=== PATIENT | male | born 1955 | race Caucasian/White ===

== ENCOUNTER 2021-11-05 16:47 | Emergency (ER) | payer MEDICARE, BC, SELFPAY ==
[2021-11-05 17:42] VITALS: BP 122/76; PULSE 82; RESP 18; TEMP 36.8; O2SAT 97; BMI 34.2
--- NOTE | 2021-11-05 18:02 | ED_ITS ---
HPI - General Adult General Time Seen by Provider: 18:02 Date Seen: 11/05/21 Chief complaint: Animal Bite Stated complaint: Cat Bite Time Seen by Provider: 11/05/21 17:55 Source: patient History of Present Illness HPI narrative: Margret is a 66 year old male with past medical history of autoimmune hepatitis, kidney stones presents emergency department with a cat bite. Patient states that around 9:00 p.m. last night her orange CT bit her on her left lower extremity, there are 2 puncture [place], no pain and minimal bleeding. She had been ambulating without any difficulty. Patient states that today she has had some pain to that area and noticed some redness and warmth surrounding the bite wounds. There has not been any drainage or swelling. She denies any fevers, chills myalgias arthralgias. The cat is an indoor cat. The cat is playful and acting normally. Patient was concerned about possible infection was starting. No other concerns at this time. Related Data Previous Rx's Medication Instructions Recorded cefuroxime axetil 500 mg tablet 500 mg PO BID 7 Days #14 tab 11/05/21 Allergies Allergy/AdvReac Type Severity Reaction Status Date / Time Penicillins Allergy Verified 11/05/21 17:41 Review of Systems Status of ROS: Reports: 10 or more systems reviewed and unremarkable except as noted in History and below PFSH PFS Social History Smoking Status: Current every day smoker What tobacco products do you use: cigarettes Do you use any of these nicotine containing products: None Second hand tobacco smoke exposure: No How often do you have a drink containing alcohol: never AUDIT-C Alcohol total score: 0 Non-prescribed substance use: denies use Exam Const: Vital Signs, click to edit/add: Vital Signs - 24 hr 11/05/21 17:42 Temperature 98.2 F Pulse Rate [Pulse Oximeter] 82 Respiratory Rate 18 Blood Pressure [Ri ght Upper Arm] 122/76 Pulse Oximetry 97 Common normals: no apparent distress and oriented x3 HENMT: Common normals: normocephalic Head and scalp: normocephalic Eye: Common normals: PERRL, EOMs intact bilaterally and conjunctivae normal Conjunctiva: conjunctiva(e) normal Pupil: PERRL Neck & C-Spine: Common normals: full ROM and supple Resp: Common normals: normal respiratory effort and clear to auscultation bilaterally Auscultation: clear to auscultation bilaterally Cardio: Common normals: S1 normal heart sound and S2 normal heart sound Heart sounds: S1 normal and S2 normal GI: Common normals: Normal to inspection, nondistended, normoactive bowel sounds present : Common normals: no CVA tenderness Bladder/kidney exam: no CVA tenderness Back & Pelvis: Common normals: no CVA tenderness Extremity: Common normals: full ROM Other: Left lower extremity: Just above the lateral malleolus, 2 puncture wounds, healing, mild surrounding erythema and warmth, no induration, tenderness or fluctuance noted. Neuro: Common normals: oriented x3 Course Course Hospital Course: 6:00 PM: AIDET performed. vitals are normal. Workup will include no labs or imaging based on history and physical exam, patient is up-to-date on his tetanus, plan to discharge with prescription for cefuroxime axetil, beta lactam, based on her allergy to Augmentin, patient has been on Ceftin in the past. 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 This should provide coverage. Patient should follow up with primary care provider after that time as needed, return if worsening symptoms. Vital Signs Vital signs: Initial Vital Signs Temperature 98.2 F 11/05/21 17:42 Temperature Source Temporal Artery Scan 11/05/21 17:42 Pulse Rate 82 11/05/21 17:42 Pulse Rhythm 11/05/21 17:42 Respiratory Rate 18 11/05/21 17:42 Blood Pressure 122/76 11/05/21 17:42 Blood Pressure Mean 91 11/05/21 17:42 Blood Pressure Position Sitting 11/05/21 17:42 Pulse Oximetry 97 11/05/21 17:42 Oxygen Delivery Method 11/05/21 17:42 Vital Signs Temperature 98.2 F 11/05/21 17:42 Pulse Rate 82 11/05/21 17:42 Respiratory Rate 18 11/05/21 17:42 Blood Pressure 122/76 11/05/21 17:42 Pulse Oximetry 97 11/05/21 17:42 Temperature 98.2 F 11/05/21 17:42 Pulse Rate 82 11/05/21 17:42 Respiratory Rate 18 11/05/21 17:42 Blood Pressure 122/76 11/05/21 17:42 Pulse Oximetry 97 11/05/21 17:42 Discharge Plan Discharge Clinical Impression: Cat bite of left lower leg Patient Disposition: Home, Self-Care Instructions: Animal Bite (ED) Additional Instructions: To take the Cefuroxime axetil 500 mg twice daily for 7 days. To continue with bacitracin ointment to the area, to clean with soap and water, ice and elevation, any worsening redness or streaking to be seen again. Follow up with a primary care provider over the next 7-10 days as needed or return if worsening symptoms. Activity Level: Activity as Tolerated Prescriptions: New cefuroxime axetil 500 mg tablet 500 mg PO BID 7 Days Qty: 14 0RF Follow Up/Referrals: Digna Quarles MD [Primary Care Provider] - Stand Alone Forms: [facility] Info Instructions
== END 2021-11-05 19:05 | disposition home or self-care (01) ==
PROVIDERS: Emergency Provider Student in an Organized Health Care Education/Training Program; PCP Family Medicine
DX: S81.852A Open bite, left lower leg, initial encounter (principal); W55.01XA Bitten by cat, initial encounter
CPT/HCPCS: 99282; 99283; 99284

== ENCOUNTER 2021-11-26 08:24 | Outpatient (RCR) | payer MEDICARE, BC, SELFPAY ==
[2021-11-17 10:22] LABS: Basophils Percent Auto 0.4 % (0.0-3.0); Eosinophils Percent Auto 2.2 % (0.0-7.0); Hemoglobin* 14.3 gm/dL (13.5-17.5); Immature Granulocytes Abs Auto 0.07 K/uL (0.00-0.30); Lymphocytes Percent Auto 60.5 % (20-44); Mean Corpuscular HGB Conc 33 gm/dL (32-36); Mean Corpuscular Hemoglobin 31 pg (26-34); Mean Corpuscular Volume 93 fL (80-100); Monocytes Percent Auto 4.2 % (0.0-11.0); Neutrophils Percent Auto 32.4 % (42.0-72.0); Platelet Count* 242 K/uL (140-440); RDW Coefficient of Variation % 14.1 % (11.5-15.5); Red Blood Count 4.65 m/uL (4.30-5.90)
[2021-11-17 10:36] LABS: Albumin* 4.2 g/dL (3.3-5.0); Chloride* 108 mmol/L (96-114); Sodium* 137 mmol/L (135-149)
[2021-11-17 10:37] LABS: Potassium* 4.6 mmol/L (3.6-5.1)
[2021-11-17 10:39] LABS: Alanine Aminotransferase* 10 U/L (4-50); Alkaline Phosphatase* 114 U/L (40-150); Aspartate Amino Transferase* 24 U/L (12-35); Bilirubin Total* 0.5 mg/dL (0.1-1.5); Blood Urea Nitrogen* 14 mg/dL (7-30); Carbon Dioxide* 21 mmol/L (20-32); Creatinine* 0.9 mg/dL (0.5-1.5); Estimated Glomerular Filt Rate 93 ml/min; Glucose* 103 mg/dL (60-115); Lactate Dehydrogenase* 331 U/L (313-618); Total Protein* 8.1 g/dL (6.0-8.3)
[2021-11-17 10:40] LABS: Calcium* 10.3 mg/dL (8.4-10.6)
[2021-11-17 11:02] LABS: Slide Review Reflex Yes; White Blood Count* 26.37 K/uL (4.50-11.00)
[2021-11-17 11:03] LABS: Slide Review Acceptable Review (Acceptable)
[2021-11-19 09:26] LABS: Albumin 3.84 g/dL (3.75-5.01); Alpha 1 Globulin 0.32 g/dL (0.19-0.46); Alpha 2 Globulin 0.78 g/dL (0.48-1.05); Immunofixation IFE Done; Immunoglobulin A 38 mg/dL (68-408); Immunoglobulin G 1732 mg/dL (768-1632); Immunoglobulin M 57 mg/dL (35-263); Kappa/Lambda Light Chain Ratio 3.32 (0.26-1.65); Lambda Qnt Free Light Chains 11.36 mg/L (5.71-26.30); Total Protein, Serum 7.4 g/dL (6.3-8.2)
== END 2022-05-16 23:59 | disposition home or self-care (01) ==
LOC: CCIC 08:24
PROVIDERS: PCP Family Medicine; Referring Provider Family Medicine; Visit Provider Internal Medicine Hematology & Oncology
DX: C91.10 Chronic lymphocytic leukemia of B-cell type not having achieved remission (principal); D72.820 Lymphocytosis (symptomatic); D47.2 Monoclonal gammopathy
CPT/HCPCS: 36415; 80053; 82784; 83520; 83615; 84155; 84165; 85025; 86334; 99212; 99213; 99214

== ENCOUNTER 2022-02-07 14:44 | Emergency (ER) | payer MEDICARE, BC, SELFPAY ==
[2022-02-07 15:04] VITALS: BP 149/82; PULSE 88; RESP 18; TEMP 36.8; O2SAT 95; BMI 34.2
[2022-02-07 15:17] LABS: Appearance Urine Clear (Clear); Bilirubin Urine Negative (Negative); Blood Urine 1+ (Negative); Color Urine Yellow (Yellow); Glucose Urine Negative (Negative); Ketones Urine Negative (Negative); Leukocyte Esterase Urine 1+ (Negative); Nitrite Urine Negative (Negative); Protein Urine Negative (Negative); Urobilinogen Urine 0.2 (0.2-1.0)
--- NOTE | 2022-02-07 15:22 | ED_ITS ---
HPI - Female Genitourinary General Chief complaint: Urogenital Problems, Female Stated complaint: Possible bladder infection Time Seen by Provider: 02/07/22 14:55 History of Present Illness HPI Narrative: This 66-year-old female comes in reporting lower abdominal pain that began yesterday. She states that the pain comes and goes somewhat. She does have a history of diverticulitis about 3 years ago but states that this pain seems different. She also has a remote history of kidney stones but again her symptoms are not similar to those episodes. She does report lower abdominal pain with increased urinary frequency. She has not had any fevers. She does not report any flank pain. Related Data Home Medications Medication Instructions Recorded Confirmed levothyroxine 88 mcg capsule 88 mcg PO QDAY 11/26/21 11/26/21 Previous Rx's Medication Instructions Recorded ciprofloxacin HCl 500 mg tablet 500 mg PO BID #20 tabs 02/07/22 (Cipro) metronidazole 500 mg tablet 500 mg PO BID 10 days #20 tabs 02/07/22 Allergies Allergy/AdvReac Type Severity Reaction Status Date / Time Penicillins Allergy Verified 11/05/21 17:41 Review of Systems Status of ROS: Reports: 10 or more systems reviewed and unremarkable except as noted in History and below Narrative: Constitutional: No fevers, no weight gain or loss. Eyes: No discharge. No vision changes. HENT: No congestion, no sore throat, no ear pain. Cardiovascular: No chest pain, no palpitations. Respiratory: No shortness of breath, no wheezes, no cough. Gastrointestinal: No abdominal pain, no vomiting, no diarrhea. Genitourinary: No hematuria. Increased urinary frequency and lower abdominal pain. Musculoskeletal: Normal range of motion. Skin: No rashes, no pruritis. Neurological: No dizziness, weakness, sensory change, speech change. Endo/Heme/Allergies: No bruising or bleeding. No polydipsia. Pysch: no suicidality, no anxiety, no insomnia. All other systems reviewed and are negative. 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 HEENT: Normocephalic, atraumatic. Neck: Normal range of motion. Nontender. Supple. Heart: Regular. No murmurs. Normal rate. Intact distal pulses. Lungs: Clear to auscultation. No chest discomfort. No wheezes, rhonchi, or rales. Abdomen: Normal bowel sounds. Diffuse tenderness in the lower abdomen. No rebound tenderness. Genitalia: Deferred. Back: No midline tenderness. Normal range of motion. Extremities: Normal range of motion. No injury. Skin: Intact. No rash. Warm. No erythema or pallor. Neurologic: No altered sensation. No weakness. Alert and oriented. Psychiatric: No suicidality. No anxiety or depression. No insomnia. Nursing notes and vitals signs are reviewed. Const: Vital Signs, click to edit/add: Vital Signs - 24 hr 02/07/22 15:04 Temperature 98.3 F Pulse Rate [Right Pulse Oximeter] 88 Respiratory Rate 18 Blood Pressure [Ri ght Upper Arm] 149/82 H Pulse Oximetry 95 Oxygen Delivery Me thod Room Air Course Vital Signs Vital signs: Initial Vital Signs Temperature 98.3 F 02/07/22 15:04 Temperature Source Temporal Artery Scan 02/07/22 15:04 Pulse Rate 88 02/07/22 15:04 Respiratory Rate 18 02/07/22 15:04 Blood Pressure 149/82 H 02/07/22 15:04 Blood Pressure Mean 104 02/07/22 15:04 Blood Pressure Position Sitting 02/07/22 15:04 Pulse Oximetry 95 02/07/22 15:04 Oxygen Delivery Method 02/07/22 15:04 Vital Signs Temperature 98.3 F 02/07/22 15:04 Pulse Rate 88 02/07/22 15:04 Respiratory Rate 18 02/07/22 15:04 Blood Pressure 149/82 H 02/07/22 15:04 Pulse Oximetry 95 02/07/22 15:04 Oxygen Delivery Method 02/07/22 15:04 Temperature 98.3 F 02/07/22 15:04 Pulse Rate 88 02/07/22 15:04 Respiratory Rate 18 02/07/22 15:04 Blood Pressure 149/82 H 02/07/22 15:04 Pulse Oximetry 95 02/07/22 15:04 Oxygen Delivery Method 02/07/22 15:04 MDM - Female Genitourinary MDM Narrative Medical decision making narrative: This patient comes in with lower abdominal pain left greater than right and has some dysuria symptoms. Urinalysis however returns with no certain findings of infection. She does have a history of diverticulitis and kidney stone. A CT of the abdomen and pelvis without contrast was completed and does show evidence of diverticulitis. The patient received prescriptions for Cipro and Flagyl. There are no other complications with this acute diverticulitis presentation. I did describe signs and symptoms that would indicate a need for return and re- evaluation. Lab Data Labs: Lab Results 02/07/22 Range/Units 15:10 Urine Color Yellow (Yellow) Urine Appearance Clear (Clear) Urine pH 7.0 (5.0-8.5) Ur Specific Hitchcock 1.010 (1.000-1.030) Urine Protein Negative (Negative) Urine Glucose (UA) Negative (Negative) Urine Ketones Negative (Negative) Urine Blood 1+ A (Negative) Urine Nitrite Negative (Negative) Urine Bilirubin Negative (Negative) Urine Urobilinogen 0.2 (0.2-1.0) Ur Leukocyte Esterase 1+ A (Negative) Urine RBC 0-2 (0-2) Urine WBC 5-10 A (0-5) Ur Squamous Epith Cells Few (None-Few) Urine Bacteria None (None) Imaging Data CT scan - abdomen: Radiologist's impression: 1. Acute diverticulitis at the junction of the descending and sigmoid colon. No drainable fluid collection. No free air. 2. Multiple large, predominantly retroperitoneal lymph nodes, increased in size from prior PET-CT performed in December 2020. 3. Hyperdense lesion within the inferior pole of the right kidney, minimally increased from prior PET-CT, is incompletely characterized on this exam, however could represent a hemorrhagic or proteinaceous cyst. 4. Bilateral nonobstructing renal calculi. Discharge Plan Discharge Clinical Impression: Diverticulitis, MGUS (monoclonal gammopathy of unknown significance) Patient Disposition: Home, Self-Care Condition: Stable Additional Instructions: Take medication as needed and indicated. Follow up with MD or return if worsening. Prescriptions: New ciprofloxacin HCl [Cipro] 500 mg tablet 500 mg PO BID Qty: 20 0RF metronidazole 500 mg tablet 500 mg PO BID 10 Days Qty: 20 0RF No Action levothyroxine 88 mcg capsule 88 mcg PO QDAY Follow Up/Referrals: Digna Quarles MD [Primary Care Provider] - Stand Alone Forms: [employer] Info Instructions
[2022-02-07 15:27] LABS: RBC Urine 0-2 (0-2); Squamous Epithelial Cell Urine Few (None-Few)
--- NOTE | 2022-02-07 15:41 | CRLHL7_ITS ---
For Patients: As a result of the 21st Century Cures Act, medical imaging exams and procedure reports are released immediately into your electronic medical record. You may view this report before your referring provider. If you have questions, please contact your health care provider. INDICATION: Left lower quadrant pain, patient has history lymphocytic leukemia TECHNIQUE: CT abdomen and pelvis without contrast. COMPARISON: CT abdomen and pelvis 03/08/2017 and PET-CT 01/16/2021 FINDINGS: The visualized portions of the lung bases are clear. There is a rounded, probable low-lying axillary lymph node on the left which measures 1.1 x 0.6 cm, previously 0.7 x 0.6 cm. Evaluation of the abdominal viscera is limited due to lack of IV contrast, however the liver, spleen, pancreas and right adrenal gland are unremarkable. Stable left adrenal nodule. The gallbladder is nondistended. There are multiple enlarged retroperitoneal lymph nodes, for example a left periaortic lymph node measures 2.0 by 1.5 cm this previously measured 1.1 x 0.5 cm. There is a prominence right external iliac lymph node which measures 1.2 x 2.6 cm (series 2, image 115). previously 0.7 x 2.0 cm Multiple bilateral nonobstructing renal calculi. There is a 0.8 cm hyperdense lesion within the inferior pole of the right kidney, which is minimally increased from the prior PET-CT could represent a hemorrhagic cyst. Negative for hydronephrosis bilaterally. There are scattered colonic diverticuli. There is a diverticuli at the junction of the descending and sigmoid colon with adjacent fat stranding and edema, consistent with acute diverticulitis. No free air. No drainable fluid collection. There are no dilated loops of small bowel to suggest obstruction.The appendix is normal.There is no intraperitoneal free air or fluid. The visualized osseous structures are unremarkable. IMPRESSION: 1. Acute diverticulitis at the junction of the descending and sigmoid colon. No drainable fluid collection. No free air. 2. Multiple large, predominantly retroperitoneal lymph nodes, increased in size from prior PET-CT performed in December 2020. 3. Hyperdense lesion within the inferior pole of the right kidney, minimally increased from prior PET-CT, is incompletely characterized on this exam, however could represent a hemorrhagic or proteinaceous cyst. 4. Bilateral nonobstructing renal calculi. Dictated by Yecenia Redman MD @ 02/07/2022 4:43:21 PM Please note that all CT scans at this facility use dose modulation, iterative reconstruction, and/or weight-based dosing when appropriate to reduce radiation dose to as low as reasonably achievable. Dictated by: Yecenia Redman MD @ 02/07/2022 16:43:51 (Electronically Signed)
--- OUTSIDE RECORDS SUMMARY | 2022-02-07 16:09 | XMS_ITS | Clinical Summary ---
:1955 Author Organization [facility] [place] [address] Care Team Providers Name Role Phone Digna Quarles MD Primary Care Provider Richard Lane MD Unavailable Nela Small [facility] Unavailable Allergies Active Allergy Reactions Severity Noted Date Comments Adhesive Rash 11/01/2014 Doxycycline Nausea Only 07/03/2016 Niacin Rash, Palpitations, 11/01/2013 Flushing Penicillins Hives High Pt states she h ad hives many years ago Medications Medication Sig Dispensed Refills Start End Date Status Date acetaminophen Take 1 tablet by 0 Active (TYLENOL EXTRA mouth every 6 7 STRENGTH) 500 mg hours if needed. tablet Max acetaminophen dose: 4000mg in 24 hrs. arm brace As directed 1 1 Each 0 Active miscIndications: Each. Elbow strap 2 Left elbow pain for left lateral epicondylitis levothyroxine TAKE 1 TABLET BY 90 Tablet 2 Active (SYNTHROID) 88 MOUTH BEFORE 2 mcg BREAKFAST. tabletIndications : Hypothyroidism, unspecified type nystatin APPLY TOPICALLY 0 Acti ve (MYCOSTATIN) TO THE AFFECTED 2 cream AREA TWICE DAILY FOR 2 WEEKS azithromycin Take 500 mg today 6 Tablet 0 Active (Zithromax Z-Yann) and then 250 mg 2 250 mg days 2-5 tabletIndications : Acute maxillary sinusitis, recurrence not specified azithromycin Take 500 mg (2 6 Tablet 0 01/21/20 Di scontinued (Zithromax Z-Yann) tabs) by mouth on 06 10 (*Med 250 mg day 1, then 250 comp lete/Regimen tabletIndications mg (1 tab) daily complete/Level : Acute for days 2-5. of car e change) non-recurrent sinusitis, unspecified location Active Problems Problem Noted Date CLL (chronic lymphocytic leukemia) 01/20/2022 Lymphoproliferative disorder 07/30/2021 Acute eczematoid otitis externa of left ear 02/10/2018 Sepsis 04/10/2017 Fungal pneumonia 12/08/2016 Postprocedural pneumothorax 09/23/2016 MGUS (monoclonal gammopathy of unknown significance) 0 06/04/2016 Incomplete bladder emptying 11/20/2015 Recurrent UTI 11/20/2015 Acute pyelonephritis 10/13/2014 Presbyopia OU 05/02/2013 Bacteremia 11/18/2012 ACP (advance care planning) 08/14/2012 Atrophic kidney 08/29/2011 Overview: Right kidney smaller than left on ultras ound 2007. Nephrolithiasis 08/29/2011 Overview: Right sided kidney stone in proximal ure ter 08/28/11 with hydronephrosis. Tobacco abuse 03/25/2010 Overview: Around 1/2 ppd. Autoimmune hepatitis 04/26/2009 Overview: On imuran Unspecified hypothyroidism Overview: On synthroid Other and unspecified hyperlipidemia Lung infiltrate on CT Lung nodule Ureteral calculus Resolved Problems Problem Noted Date Resolved Date MGUS (monoclonal gammopathy of unknown significance) 017 06/04/2016 Incomplete emptying of bladder 09/11/2015 7 [place]ERETTE (acute kidney injury) 10/14/2014 07/18/2015 Flank pain 10/13/2014 12/08/2016 Kidney stone 10/13/2014 02/10/2018 Sepsis(995.91) 11/18/2012 05/05/2013 Sepsis due to urinary tract infection 08/14/2012 UTI (urinary tract infection) 08/31/2011 05/05/2013 Nausea with vomiting 08/30/2011 05/05/2013 Back pain 08/30/2011 02/10/2018 Other chronic hepatitis 09/15/2007 03/25/2010 Nonspecific elevation of levels of transaminase or lactic 08/29/2011 acid dehydrogenase (LDH) Excessive or frequent menstruation 01/16 Overview: s/p hysterectomy Encounters Date Type Specialty Care Team Description 01/20/2022 Office Visit Digna Quarles (Cough, itchy throat, MD Jamila post nasal drip , phlegm and neck swelling f or 1 week) 01/20/2022 Travel from Last 3 Months Immunizations Name Administration Dates Next Due AMB Influenza, IIV4 PF (=>6 mos 01/14/2018, 03/25/2016 Flulaval,Fluzone Fluarix)(Flu Clinic Only) COVID-19 vaccine (Moderna 100mcg/0.5mL) 07/29/2020, 07/02/19 21 PF, MDV DTaP 01/16/2011 Influenza A (H1N1), Inactivated (Age 6-35 03/06/2009 Mos) Influenza, High-dose Quadrivalent 01/23/2022, 01/08/2021, Inactivated Influenza, IIV3 (Age >=3 years) 01/31/2015, 02/14/2013, 01/19 Influenza, IIV4 02/10/2017, 01/17/2014 Influenza, Inactivated IIV3 (Age 65+ 01/10/2019 Years) Preserv Free Pneumococcal Poly,23-Valent (Pneumovax) 12/16/2017 Pneumococcal conj 13-Valent (Prevnar 13) 12/10/2016 Td (Age >=7 Years) 06/18/1997 Zoster (Shingrix-RZV, recombinant) 03/13/2020, 01/03/2020 Family History Medical History Relation Name Comments Diabetes Mother Stroke Mother Relation Name Status Comments Mother Social History Tobacco Use Types Packs/Day Years Used Date Current Every Day Smoker Cigarettes 0.5 30 Smokeless Tobacco: Never Used Tobacco Cessation: Ready to Quit: Yes; C ounseling Given: Yes Alcohol Use Standard Drinks/Week Comments No 0 (1 standard drink = 0.6 oz pure alcoho l) Sex Assigned at Date Recorded Not on file COVID-19 Exposure Response Date Recorded In the last 10 days, have you been in contact with No / Unsu re 01/20/2022 1:19 PM CDT someone who was confirmed or suspected to have Coronavirus/COVID-19? Obstetrics History Last Filed Vital Signs Vital Sign Reading Time Taken Comments Blood Pressure 120/77 01/20/2022 1:34 PM CDT Pulse 89 01/20/2022 1:34 PM CDT Temperature 36.8 ??C (98.3 ??F) 01/20/2022 1:34 PM CDT Respiratory Rate 20 12/27/2018 9:22 AM CDT Oxygen Saturation 97% 01/20/2022 1:34 PM CDT Inhaled Oxygen Concentration - - Weight 102.1 kg (225 lb) 01/20/2022 1:34 PM CDT Height 170.2 cm (5' 7) 07/16/2021 10:28 AM CDT Body Mass Index 35.24 07/16/2021 10:28 AM CDT Plan of Treatment Health Maintenance Due Date Last Done Comments Tdap 1964 Lipids for age 45-75 03/18/2015 03/18/2010, 04/24/2009, 08/05/2007, Additional history exists DEXA/DXA scan for age 65+ 2018 Medicare Wellness for age 65+ 2018 Depression screening for age 12+ 03/08/2020 03/08/2019, , 02/10/2018, Additional history exists Fecal testing non-DNA 03/08/2020 03/08/2019 (FIT,FOBT,iFOBT) for age 45-75 Tetanus booster 01/16/2021 01/16/2011, 06/18/1997 COVID-19 vaccine series (4 - 04/23/2021 02/26/2021, 021, Booster for Moderna series) 07/01/2020 Mammogram for age 45-75 09/05/2021 09/05/2020 BMI (ht and wt on same day) for 07/16/2022 07/16/2021, 08/0 06/2020, age 18+ 09/05/2020, Additional history exists Pneumococcal series for age 65+ (3 12/16/2022 12/16/2017, 0 12/10/2016 - PPSV23 or PCV20) Hepatitis C screening for age Completed 09/05/2007 18-79 Zoster (shingles) series for age Completed 03/13/2020, 50+ Influenza for age 65+ Completed 01/23/2022, 01/08/2021, 12/22/2019, Additional history exists Medical Devices Implanted Type Area Mattress Packer Device Shelf Model / Identifier Expiration Serial / Date Lot Stent Contour [id number] - [id number] Left: [facility] [id number]# / Implanted: Qty: 1 on 08/30/2011 at [facility] [employer] / [id number] Stent Prcflx [id number] Hydpls - [id number] Left: [facility] Urolo gy 04/18/2012 [id number]# / Implanted: Qty: 1 on 08/12/2012 by Jerry Roach MD at [facility] [employer] / [id number] Stent Prcflx [id number] Hydpls - [id number] Right: 08/17/2015 [id number]# / Implanted: Qty: 1 on 11/17/2012 by Gavin Banks MD at [facility] [employer] / [id number] Stent Urtrl Prcflx [id number] - [id number] Ureter [facility] Urology [id number]# / Implanted: Qty: 1 on 11/30/2012 by Fran Meehan MD at [facility] / [id number] Stent Contour [id number] - [id number] Left: [facility] U[facility] [id number]# / Implanted: Qty: 1 on 10/14/2014 by Piotr Jacob MBBS at [facility] [employer] / [id number] Stent Uret [id number] Contour - [id number] Left: [facility] Urolo gy 180-222# / Implanted: Qty: 1 on 03/17/2017 by Campos Moody ch, MD at [facility] [employer] / [id number] Stent Uret [id number] Silhouette - [id number] Right: A pplied Medical 09/21/2019 [id number] / Implanted: Qty: 1 on 04/09/2017 by Tobin Bro MD at [facility] [employer] / [id number] Procedures Procedure Name Priority Date/Time Associated Diagnosis Comme nts SARS-COV-2, ABRAM 2 Routine 01/20/2022 2:13 PM Viral upper Resu lts for this DAY TAT(REFLEX ONLY) CDT respiratory tract pr ocedure are in infection the results section. COVID 19 [facility] Routine 01/20/2022 2:13 PM Viral upper Resul ts for this CDT respiratory tract procedure are in infection the results section. COVID 19 COLLECTION Routine 01/20/2022 2:13 PM Viral upper Re sults for this CDT respiratory tract procedure are in infection the results section. from Last 3 Months Results SARS-COV-2, ABRAM 2 DAY TAT(REFLEX ONLY) (01/20/2022 2:13 PM CDT) [facility] Method Time Signature SARS-CoV-2, Performed 01/22/2022 [facility] ABRAM 2 DAY TAT 6:07 PM CDT [facility] ESOTERIC TESTING (CET) Specimen Anatomical Collection Method Collection Time Receive d Time (Source) Location / / Volume Laterality Other SPECIMEN FROM Non-Blood / 01/20/2022 2:13 PM 01/22/20 9:36 NASAL FOSSAE / Unknown CDT AM CDT Unknown Narrative [facility] ESOTERIC TESTING (CET) - 01/22/2022 6:07 PM CDT Performed at: ??02 - [address] ??[id number] Signal Repairer: Mat Burk MD, Phone: ?? [phone] Digna Quarles MD LABORATORY Performing Organization Address City/State/ZIP Code Phon e Number [facility] [address] [place] [phone] ESOTERIC TESTING (CET) COVID 19 COLLECTION (01/20/2022 2:13 PM CDT) [facility] Method Time Signature TESTING [facility] 01/21/2022 [facility] LABORATORY 9:36 AM CDT LABORATORY-[facility] Comment: Specimen submitted to [facility] f or testing. Specimen Anatomical Collection Method Collection Time Receive d Time (Source) Location / / Volume Laterality Other SPECIMEN FROM Non-Blood / 01/20/2022 2:13 PM 01/21/20 22 2:14 NASAL FOSSAE / Unknown CDT PM CDT Unknown Digna Quarles MD SEND OUTS Performing Organization Address City/State/ZIP Code Phon e Number [facility] [address] [place] [address] LABORATORY-CENTRAL 2000 LABORATORY COVID 19 [facility] (01/20/2022 2:13 PM CDT) [facility] Method Time Signature COVID 19 Not Detected Not Detected 01/22/2022 [facility] 6:07 PM CDT [facility] ESOTERIC TESTING (CET) Comment: This nucleic acid amplification test was developed and its performance characteristics determined by [employer]. Nucleic acid amplification tests include RT-PCR and T MA. This test has not been FDA cleared or approved. This test has b een authorized by FDA under an Emergency Use Authorization (EUA). Th is test is only authorized for the duration of time the declaration that circumstances exist justifying the authorization of the [facility] use of in vitro diagnostic tests for detection of SARS-C oV-2 virus and/or diagnosis of COVID-19 infection under section 564( b)(1) of the Act, 21 U.S.C. 360bbb-3(b) (1), unless the authorizatio n is terminated or revoked sooner. When diagnostic testing is negative, the possibility of a false negative result should be considered in the context of a patient's recent exposures and the presence of cli nical signs and symptoms consistent with COVID-19. An individual without symptoms of COVID-19 and who is not shedding SARS-CoV-2 virus would expect to have a negative (not detected) result in this a ssay. Specimen Anatomical Collection Method Collection Time Receive d Time (Source) Location / / Volume Laterality Other SPECIMEN FROM Non-Blood / 01/20/2022 2:13 PM 01/22/20 22 9:36 NASAL FOSSAE / Unknown CDT AM CDT Unknown Narrative [facility] ESOTERIC TESTING (CET) - 01/22/2022 6:07 PM CDT Performed at: ??01 - [facility] [place] [address] ??[id number] Signal Repairer: Mat Burk MD, Phone: ?? [phone] Digna Quarles MD MICROBIOLOGY Performing Organization Address City/State/ZIP Code Phon e Number [facility] [address] [address] ESOTERIC TESTING (CET) from Last 3 Months Insurance Payer Benefit Plan / Subscriber ID Effective Dates Phone Addre ss Type Group BLUE CROSS [place] BLUE CROSS [id number] 2018-Present [address] [address] [place], [place] ONLY [id number] Advance Directives Latest Code Status on File Code Status Date Activated Date Inactivated Comments Full Code 04/10/2017 2:56 PM 04/12/2017 2:17 PM Full Code 04/09/2017 12:24 PM 04/10/2017 2:42 AM Full Code 03/17/2017 1:56 AM 03/19/2017 6:58 PM Full Code 09/23/2016 6:58 PM 09/24/2016 1:59 PM Full Code 10/13/2014 8:16 PM 10/16/2014 1:56 PM Care Teams Skidder Operator Relationship Specialty Start Date End Date Digna Quarles, PCP - General 08/25/[address] [place] [address] [place] [address] MD Rheumatology Rheumatology 07/10/13 Nela Small, REPEAT CHIEF Oncology Clinical Nurse Specialist 08/05/16
== END 2022-02-07 17:17 | disposition home or self-care (01) ==
PROVIDERS: Emergency Provider Emergency Medicine Emergency Medical Services; PCP Family Medicine
DX: K57.92 Diverticulitis of intestine, part unspecified, without perforation or abscess without bleeding (principal); D47.2 Monoclonal gammopathy
CPT/HCPCS: 74176; 81001; 87086; 87186; 99284; 99285

== ENCOUNTER 2022-07-06 07:25 | Outpatient (CLI) | payer MEDICARE, BC, SELFPAY ==
--- NOTE | 2022-07-06 06:29 | W.ANESCHARGE ---
Anesthesia Charges Start Date/Time Anesthesia Start Date: 07/06/22 Anesthesia Start Time: 08:49 Stop Date/Time Anesthesia Stop Date: 07/06/22 Anesthesia Stop Time: 09:08
[2022-07-06 08:04] VITALS: BP 119/68; PULSE 76; RESP 16; TEMP 35.9; O2SAT 96; BMI 33.8
[2022-07-06 09:07] VITALS: BP 97/62; PULSE 70; RESP 16; O2SAT 95
--- NOTE | 2022-07-06 09:14 | W.ANESCHARGE ---
Anesthesia Charges Start Date/Time Anesthesia Start Date: 07/06/22 Anesthesia Start Time: 08:49 Stop Date/Time Anesthesia Stop Date: 07/06/22 Anesthesia Stop Time: 09:08
[2022-07-06 09:17] VITALS: BP 101/65; PULSE 66; RESP 16; O2SAT 96
[2022-07-06 09:17] LABS: Basophils Percent Auto 0.4 % (0.0-3.0); Eosinophils Percent Auto 2.4 % (0.0-7.0); Hematocrit 43.2 % (33.0-51.0); Hemoglobin* 14.3 gm/dL (12.0-16.0); Immature Granulocytes Pct Auto 0.2 %; Immature Reticulocyte Fraction 10.7 % (3.0-15.9); Mean Corpuscular HGB Conc 33 gm/dL (32-36); Mean Corpuscular Hemoglobin 31 pg (26-34); Mean Corpuscular Volume 93 fL (80-100); Platelet Count* 212 K/uL (140-440); RDW Coefficient of Variation % 13.8 % (11.5-15.5); Red Blood Count 4.67 m/uL (4.00-5.20); Reticulocyte Hemoglobin Equivi 29.2 pg (29.0-35.0); Reticulocyte Percent 2.1 % (0.5-2.0); White Blood Count* 21.68 K/uL (4.50-11.00)
[2022-07-06 09:27] VITALS: BP 116/66; PULSE 65; RESP 16; O2SAT 97
[2022-07-06 09:28] LABS: Slide Review Reflex Yes
[2022-07-06 09:37] VITALS: BP 124/73; PULSE 60; RESP 16; O2SAT 95
[2022-07-06 09:54] LABS: Slide Review Acceptable Review (Acceptable)
== END 2022-07-06 10:04 | disposition home or self-care (01) ==
LOC: OP CLINIC 07:26
PROVIDERS: PCP Family Medicine; Visit Provider Internal Medicine Hematology & Oncology
DX: D47.2 Monoclonal gammopathy (principal)
CPT/HCPCS: 01112; 36415; 38222; 85025; 85045; 88184; 88185; 88237; 88264; 88271; 88275; 88285; 88299; 88305; 88311; 88313; 88342; 88360; J1644; J2001; J2704

== ENCOUNTER 2022-07-30 13:44 | Outpatient (CLI) | payer MEDICARE, BC, SELFPAY ==
--- NOTE | 2022-07-30 14:00 | CRLHL7_ITS ---
For Patients: As a result of the 21st Century Cures Act, medical imaging exams and procedure reports are released immediately into your electronic medical record. You may view this report before your referring provider. If you have questions, please contact your health care provider. INDICATION: CLL, MGUS, myeloma TECHNIQUE: Following IV injection of FDG with uptake of 63 minutes, noncontrast CT scan followed by a PET scan were acquired along the length of body from the head to the feet. Noncontrast CT was used for anatomic localization and photon attenuation correction of the PET-CT scan. - Blood glucose level: 98. - FDG dose (mCi): 12.5. COMPARISON: PET-CT 01/16/2021. FINDINGS: Head/Neck: Asymmetric uptake in the left posterior nasopharynx, nonspecific. Mild uptake in the bilateral thyroid glands, right greater than left, similar to prior study. This is nonspecific but likely physiologic. - Chest: Enlarged axillary and mediastinal lymph nodes, for example a 1.7 cm left axillary lymph node on image 101 with SUV max 2.7, a 2.0 cm right axillary lymph node on image 102 with SUV max 2.1, and a 1.6 cm paraesophageal lymph node on image 131 with SUV max 1.4. There is a left upper lobe 1.3 cm pulmonary nodule without significant tracer activity, similar to 202. - Background liver parenchyma with SUV mean of 1.8. There is new bulky confluent retroperitoneal lymphadenopathy, for example on the left measuring approximately 5 cm with SUV max 3.2. A 2.1 cm right common iliac lymph node on image 240 with SUV max 3.3. Additional bilateral enlarged iliac chain lymph nodes. - Musculoskeletal: No abnormal tracer uptake. - CT findings: Atherosclerotic calcifications of the aorta and its branches. Colonic diverticulosis without evidence of acute diverticulitis. Nonobstructing left renal calculi are increased measuring up to 10 mm. Nodular low-density enlargement of the left adrenal gland, similar to the prior study, likely adenomas. IMPRESSION : 1. Increased axillary, mediastinal, retroperitoneal, and pelvic lymphadenopathy suggesting worsening of disease. 2. Left upper lobe pulmonary nodule without significant tracer uptake is not significantly changed and remains indeterminate. 3. Persistent tracer uptake in the thyroid, right greater than left, is slightly decreased, and likely benign. Dictated by Jose Guadalupe Young MD @ 08/03/2022 10:53:24 AM (Electronically Signed)
== END 2022-07-30 13:45 | disposition home or self-care (01) ==
LOC: RAD 13:46
PROVIDERS: PCP Family Medicine; Visit Provider Internal Medicine Hematology & Oncology
DX: C91.10 Chronic lymphocytic leukemia of B-cell type not having achieved remission (principal); D72.820 Lymphocytosis (symptomatic); D47.2 Monoclonal gammopathy; R91.1 Solitary pulmonary nodule
CPT/HCPCS: 78816; A9552

== ENCOUNTER 2022-11-09 11:00 | Outpatient (RCR) | payer MEDICARE, BC, SELFPAY ==
[2022-05-18 12:33] LABS: Basophils Percent Auto 0.4 % (0.0-3.0); Hematocrit 40.7 % (33.0-51.0); Hemoglobin* 13.8 gm/dL (12.0-16.0); Immature Granulocytes Pct Auto 0.3 %; Lymphocytes Percent Auto 62.1 % (20-44); Mean Corpuscular HGB Conc 34 gm/dL (32-36); Mean Corpuscular Hemoglobin 31 pg (26-34); Mean Corpuscular Volume 92 fL (80-100); Monocytes Percent Auto 4.5 % (0.0-11.0); Neutrophils Percent Auto 30.7 % (42.0-72.0); Platelet Count* 208 K/uL (140-440); RDW Coefficient of Variation % 13.5 % (11.5-15.5); Red Blood Count 4.45 m/uL (4.00-5.20)
[2022-05-18 12:44] LABS: Albumin* 4.2 g/dL (3.3-5.0); Chloride* 111 mmol/L (96-114); Sodium* 138 mmol/L (135-149)
[2022-05-18 12:45] LABS: Potassium* 4.6 mmol/L (3.6-5.1)
[2022-05-18 12:47] LABS: Alkaline Phosphatase* 85 U/L (40-150); Aspartate Amino Transferase* 19 U/L (12-35); Bilirubin Total* 0.5 mg/dL (0.1-1.5); Blood Urea Nitrogen* 14 mg/dL (7-30); Carbon Dioxide* 20 mmol/L (20-32); Creatinine* 0.9 mg/dL (0.5-1.5); Estimated Glomerular Filt Rate 70 ml/min; Glucose* 98 mg/dL (60-115); Total Protein* 7.8 g/dL (6.0-8.3)
[2022-05-18 12:48] LABS: Alanine Aminotransferase* 12 U/L (4-35); Calcium* 10.1 mg/dL (8.4-10.6); Lactate Dehydrogenase* 136 U/L (120-246)
[2022-05-18 13:11] LABS: Slide Review Reflex Yes; White Blood Count* 25.67 K/uL (4.50-11.00)
[2022-05-18 13:12] LABS: Slide Review Acceptable Review (Acceptable)
[2022-05-20 23:23] LABS: Albumin 3.73 g/dL (3.75-5.01); Alpha 1 Globulin 0.31 g/dL (0.19-0.46); Alpha 2 Globulin 0.69 g/dL (0.48-1.05); Immunofixation IFE Done; Immunoglobulin A 26 mg/dL (68-408); Immunoglobulin G 1725 mg/dL (768-1632); Immunoglobulin M 51 mg/dL (35-263); Kappa Qnt Free Light Chains 51.04 mg/L (3.30-19.40); Kappa/Lambda Light Chain Ratio 6.07 (0.26-1.65); Lambda Qnt Free Light Chains 8.41 mg/L (5.71-26.30); Monoclonal Protein 1.58 g/dL; Total Protein, Serum 7.1 g/dL (6.3-8.2)
--- NOTE | 2022-05-22 09:36 | ONC.NURNOTE ---
Patient due for follow up. Provider schedule is tight. SWATCH PASTER instructed to call patient to come in for a blood draw. Labs to be shown to provider to determine need for follow up.
[2022-07-28 14:34] LABS: Basophils Percent Auto 0.3 % (0.0-3.0); Eosinophils Percent Auto 1.9 % (0.0-7.0); Hematocrit 41.1 % (33.0-51.0); Hemoglobin* 13.7 gm/dL (12.0-16.0); Immature Granulocytes Pct Auto 0.3 %; Lymphocytes Percent Auto 63.8 % (20-44); Mean Corpuscular HGB Conc 33 gm/dL (32-36); Mean Corpuscular Hemoglobin 31 pg (26-34); Mean Corpuscular Volume 93 fL (80-100); Monocytes Percent Auto 5.9 % (0.0-11.0); Neutrophils Percent Auto 27.8 % (42.0-72.0); Platelet Count* 232 K/uL (140-440); RDW Coefficient of Variation % 13.9 % (11.5-15.5); Red Blood Count 4.44 m/uL (4.00-5.20)
[2022-07-28 14:50] LABS: Albumin* 4.2 g/dL (3.3-5.0); Chloride* 108 mmol/L (96-114); Potassium* 4.2 mmol/L (3.6-5.1); Sodium* 137 mmol/L (135-149)
[2022-07-28 14:52] LABS: Creatinine* 0.9 mg/dL (0.5-1.5); Estimated Glomerular Filt Rate 70 ml/min
[2022-07-28 14:53] LABS: Alanine Aminotransferase* 11 U/L (4-35); Alkaline Phosphatase* 94 U/L (40-150); Aspartate Amino Transferase* 18 U/L (12-35); Bilirubin Total* 0.3 mg/dL (0.1-1.5); Blood Urea Nitrogen* 16 mg/dL (7-30); Carbon Dioxide* 19 mmol/L (20-32); Glucose* 87 mg/dL (60-115); Lactate Dehydrogenase* 149 U/L (120-246); Total Protein* 7.5 g/dL (6.0-8.3)
[2022-07-28 14:54] LABS: Calcium* 10.6 mg/dL (8.4-10.6)
[2022-07-28 15:19] LABS: White Blood Count* 26.27 K/uL (4.50-11.00)
[2022-07-28 15:20] LABS: Slide Review Reflex Yes
[2022-07-28 15:21] LABS: Slide Review Acceptable Review (Acceptable)
[2022-07-29 23:26] LABS: Beta-2-Microglob Serum/Plasma 3.9 mg/L (<=3.0)
[2022-07-30 22:58] LABS: Free Urine LAmbda Light Chains <0.74 mg/L (0.00-3.79); Hours Collected 24 hr; Total Volume 2375 mL
[2022-07-31 00:05] LABS: Albumin 3.92 g/dL (3.75-5.01); Alpha 1 Globulin 0.33 g/dL (0.19-0.46); Alpha 2 Globulin 0.69 g/dL (0.48-1.05); Immunofixation IFE Done; Immunoglobulin A 30 mg/dL (68-408); Immunoglobulin G 1528 mg/dL (768-1632); Immunoglobulin M 52 mg/dL (35-263); Kappa Qnt Free Light Chains 55.67 mg/L (3.30-19.40); Kappa/Lambda Light Chain Ratio 6.86 (0.26-1.65); Lambda Qnt Free Light Chains 8.11 mg/L (5.71-26.30); Monoclonal Protein 1.58 g/dL; Total Protein, Serum 7.3 g/dL (6.3-8.2)
--- NOTE | 2022-08-13 14:05 | ONC.NURNOTE ---
PSDS = 6 patient denied need for SS consult and asked if this meant her disease was more serious than what she understood that we were offering SS informed that all patients are offered SS and is available if she changes her mind
--- NOTE | 2022-08-13 14:06 | ONC.NURNOTE ---
Donis abernathy start teaching- discussed process of obtaining medication thru [facility], [facility] and then addressing copay costs if needed reviewed financial costs of drug and process for copay support and if needed free drug thru the pharmacy pipe layer patient with many questions about this process, greater than 30 min spent answering her questions Demarcus reports that she has received a lot of new information today scientific technical writer offered to continue this teaching at another time, Demarcus wanted to continue reviewed possible side effects, calling clinic with concerns, what to do if develop a fever self care at home how to take the medication daily reviewed contents of the new information binder further questions addressed APRIL consents signed PSDS completed, patient did not want a SS consult when offered
--- NOTE | 2022-08-13 14:14 | ONC.NURNOTE ---
Addendum entered by Monica Medina RN 08/17/22 13:44: PA approved for calquence [place] [employer] [place] 05/17/22-08/16/23 [facility]-[id number] [phone] Addendum entered by Monica Medina RN 08/13/22 16:03: ?[employer] at? . PA submitted via covermymeds for acalabrutinib 100mg sent to [employer] Original Note: Calquence/acalabrutinib faxed to [facility]
--- NOTE | 2022-08-17 13:44 | ONC.NURNOTE ---
Donis copay via [facility] = $2360.60 [employer] [facility] has funding for CLL patient was instructed to call [facility] back today and start enrollment for copay assist Rafael has the # and will call today
--- NOTE | 2022-08-18 15:20 | ONC.NURNOTE ---
LADONNA for follow up phone call regarding copay enrollment status into the [employer] patient will require a EKG before beginning lab appts needed and follow up visit
[2022-08-20 11:48] LABS: Basophils Percent Auto 0.4 % (0.0-3.0); Eosinophils Percent Auto 1.7 % (0.0-7.0); Hematocrit 42.1 % (33.0-51.0); Hemoglobin* 13.7 gm/dL (12.0-16.0); Immature Granulocytes Pct Auto 0.2 %; Lymphocytes Percent Auto 60.4 % (20-44); Mean Corpuscular HGB Conc 33 gm/dL (32-36); Mean Corpuscular Hemoglobin 31 pg (26-34); Mean Corpuscular Volume 94 fL (80-100); Monocytes Percent Auto 4.2 % (0.0-11.0); Neutrophils Percent Auto 33.1 % (42.0-72.0); Platelet Count* 221 K/uL (140-440); Red Blood Count 4.46 m/uL (4.00-5.20); White Blood Count* 22.06 K/uL (4.50-11.00)
[2022-08-20 11:52] LABS: Slide Review Reflex No
[2022-08-20 12:06] LABS: Albumin* 4.4 g/dL (3.3-5.0); Chloride* 108 mmol/L (96-114); Potassium* 5.3 mmol/L (3.6-5.1); Sodium* 139 mmol/L (135-149)
[2022-08-20 12:09] LABS: Alanine Aminotransferase* 12 U/L (4-35); Alkaline Phosphatase* 96 U/L (40-150); Aspartate Amino Transferase* 21 U/L (12-35); Bilirubin Total* 0.4 mg/dL (0.1-1.5); Blood Urea Nitrogen* 16 mg/dL (7-30); Carbon Dioxide* 24 mmol/L (20-32); Estimated Glomerular Filt Rate 61 ml/min; Glucose* 107 mg/dL (60-115); Total Protein* 7.8 g/dL (6.0-8.3)
[2022-08-20 12:10] LABS: Calcium* 10.5 mg/dL (8.4-10.6)
--- NOTE | 2022-08-27 15:55 | PC.NURSE ---
Addendum entered by Hue Chávez RN 08/31/22 09:51: Patient had NOT started her Calquence yet so instructed her to start it 5 am and then appointments rescheduled appropriately. patient called and confirmed that she has started her medication this am. Original Note: Eros from specialty pharmacy called to inquire about whether or not pt is starting Calquence. RN called back and informed Eros that MECCA Andersonbottling line operator will follow-up on Wednesday.
--- NOTE | 2022-09-02 13:52 | ONC.NURNOTE ---
New Start Calquence follow up: reports no diarrhea or any other physical changes taking one tab with breakfast daily confirmed next lab draws and follow up appts reminded to call with any concerns
--- NOTE | 2022-09-07 12:00 | ONC.NURNOTE ---
Has been experiencing constipation- she added more fiber to diet with results, felt achy and bloated prior to moving bowels states this is not new problem no other reported side effects reports feeling like it was good decision to start calquence
[2022-09-15 10:08] LABS: Basophils Percent Auto 0.4 % (0.0-3.0); Eosinophils Percent Auto 1.4 % (0.0-7.0); Hematocrit 42.4 % (33.0-51.0); Hemoglobin* 13.8 gm/dL (12.0-16.0); Immature Granulocytes Pct Auto 0.3 %; Lymphocytes Percent Auto 56.9 % (20-44); Mean Corpuscular HGB Conc 33 gm/dL (32-36); Mean Corpuscular Hemoglobin 31 pg (26-34); Mean Corpuscular Volume 95 fL (80-100); Monocytes Percent Auto 4.6 % (0.0-11.0); Neutrophils Percent Auto 36.4 % (42.0-72.0); Platelet Count* 270 K/uL (140-440); RDW Coefficient of Variation % 14.2 % (11.5-15.5); Red Blood Count 4.45 m/uL (4.00-5.20); White Blood Count* 22.58 K/uL (4.50-11.00)
[2022-09-15 10:43] LABS: Slide Review Reflex Yes
[2022-09-15 11:24] LABS: Slide Review Acceptable Review (Acceptable)
--- NOTE | 2022-09-15 13:15 | ONC.NURNOTE ---
Addendum entered by Monica Medina RN 09/16/22 15:12: follow up on rash: reports continued improvement in rash- resolving without any specific intervention Original Note: Rash and Lab results noted and called to Demarcus While here today for lab- Demarcus showed this service writer advisor red raised discrete lesions sparsely distributed over arms/hands and lower legs, with more concentrated numbers over the ankles, denies any lesions on her torso these do not itch Demarcus reports a long history of breaking out with new medications or contact reaction with a particular blanket she has seen Dr Quarles in the past for this same issue, and has been worked up with a biopsy in the past will let Dr Pan know, and will continue to follow with Demarcus she does report over the past 5 days since these have erupted she is noticing some resolution with out any interventions
[2022-09-28 10:24] LABS: Basophils Percent Auto 0.5 % (0.0-3.0); Eosinophils Percent Auto 1.4 % (0.0-7.0); Hematocrit 40.1 % (33.0-51.0); Hemoglobin* 12.9 gm/dL (12.0-16.0); Immature Granulocytes Pct Auto 0.2 %; Lymphocytes Percent Auto 44.9 % (20-44); Mean Corpuscular HGB Conc 32 gm/dL (32-36); Mean Corpuscular Hemoglobin 31 pg (26-34); Mean Corpuscular Volume 96 fL (80-100); Monocytes Percent Auto 4.6 % (0.0-11.0); Neutrophils Percent Auto 48.4 % (42.0-72.0); Platelet Count* 227 K/uL (140-440); RDW Coefficient of Variation % 14.5 % (11.5-15.5); Red Blood Count 4.18 m/uL (4.00-5.20); White Blood Count* 17.41 K/uL (4.50-11.00)
[2022-09-28 10:43] LABS: Slide Review Reflex Yes
[2022-09-28 10:45] LABS: Slide Review Acceptable Review (Acceptable)
[2022-09-28 12:15] LABS: Albumin* 4.1 g/dL (3.3-5.0); Chloride* 106 mmol/L (96-114)
[2022-09-28 12:16] LABS: Potassium* 4.3 mmol/L (3.6-5.1); Sodium* 137 mmol/L (135-149)
[2022-09-28 12:18] LABS: Bilirubin Total* 0.6 mg/dL (0.1-1.5); Carbon Dioxide* 24 mmol/L (20-32); Creatinine* 0.9 mg/dL (0.5-1.5); Estimated Glomerular Filt Rate 69 ml/min; Total Protein* 7.8 g/dL (6.0-8.3)
[2022-09-28 12:19] LABS: Alanine Aminotransferase* 13 U/L (4-35); Alkaline Phosphatase* 81 U/L (40-150); Aspartate Amino Transferase* 30 U/L (12-35); Blood Urea Nitrogen* 16 mg/dL (7-30); Calcium* 10.4 mg/dL (8.4-10.6); Glucose* 108 mg/dL (60-115)
--- NOTE | 2022-09-28 12:40 | ONC.NURNOTE ---
Lab results reviewed and called to Demarcus Ba has moderately improved, but still present reports improvement in overall bloating reports feeling better overall walking up and down stairs-feels more mobile reports some fatigue- later in day, a little more than her baseline prior to start acalbrutinib delivery delayed with [facility] arriving tomorrow, with her last pill on hand
[2022-10-12 09:31] LABS: Basophils Percent Auto 0.5 % (0.0-3.0); Eosinophils Percent Auto 1.9 % (0.0-7.0); Hematocrit 38.9 % (33.0-51.0); Hemoglobin* 12.8 gm/dL (12.0-16.0); Immature Granulocytes Pct Auto 0.3 %; Lymphocytes Percent Auto 43.6 % (20-44); Mean Corpuscular HGB Conc 33 gm/dL (32-36); Mean Corpuscular Hemoglobin 31 pg (26-34); Mean Corpuscular Volume 95 fL (80-100); Monocytes Percent Auto 4.9 % (0.0-11.0); Neutrophils Percent Auto 48.8 % (42.0-72.0); Platelet Count* 251 K/uL (140-440); RDW Coefficient of Variation % 14.4 % (11.5-15.5); White Blood Count* 17.68 K/uL (4.50-11.00)
[2022-10-12 09:41] LABS: Chloride* 106 mmol/L (96-114); Potassium* 4.5 mmol/L (3.6-5.1); Sodium* 136 mmol/L (135-149)
[2022-10-12 09:44] LABS: Alanine Aminotransferase* 15 U/L (4-35); Alkaline Phosphatase* 91 U/L (40-150); Aspartate Amino Transferase* 20 U/L (12-35); Bilirubin Total* 0.5 mg/dL (0.1-1.5); Blood Urea Nitrogen* 15 mg/dL (7-30); Carbon Dioxide* 21 mmol/L (20-32); Creatinine* 0.9 mg/dL (0.5-1.5); Estimated Glomerular Filt Rate 69 ml/min; Glucose* 96 mg/dL (60-115); Total Protein* 7.6 g/dL (6.0-8.3)
[2022-10-12 09:45] LABS: Calcium* 10.4 mg/dL (8.4-10.6)
[2022-10-12 10:01] LABS: Slide Review Reflex Yes
[2022-10-12 10:09] LABS: Slide Review Acceptable Review (Acceptable)
[2022-11-09 11:15] LABS: Basophils Percent Auto 0.5 % (0.0-3.0); Eosinophils Percent Auto 1.8 % (0.0-7.0); Hematocrit 37.9 % (33.0-51.0); Hemoglobin* 12.4 gm/dL (12.0-16.0); Immature Granulocytes Pct Auto 0.2 %; Mean Corpuscular HGB Conc 33 gm/dL (32-36); Mean Corpuscular Hemoglobin 31 pg (26-34); Mean Corpuscular Volume 94 fL (80-100); Monocytes Percent Auto 5.5 % (0.0-11.0); Platelet Count* 234 K/uL (140-440); RDW Coefficient of Variation % 14.1 % (11.5-15.5); Red Blood Count 4.03 m/uL (4.00-5.20); White Blood Count* 15.91 K/uL (4.50-11.00)
[2022-11-09 11:23] LABS: Slide Review Reflex Yes
[2022-11-09 11:43] LABS: Albumin* 3.9 g/dL (3.3-5.0); Chloride* 108 mmol/L (96-114); Potassium* 4.2 mmol/L (3.6-5.1); Sodium* 138 mmol/L (135-149)
[2022-11-09 11:46] LABS: Alanine Aminotransferase* 13 U/L (4-35); Alkaline Phosphatase* 79 U/L (40-150); Aspartate Amino Transferase* 18 U/L (12-35); Bilirubin Total* 0.5 mg/dL (0.1-1.5); Blood Urea Nitrogen* 19 mg/dL (7-30); Carbon Dioxide* 21 mmol/L (20-32); Creatinine* 0.8 mg/dL (0.5-1.5); Estimated Glomerular Filt Rate 80 ml/min; Glucose* 100 mg/dL (60-115); Total Protein* 7.5 g/dL (6.0-8.3)
[2022-11-09 11:47] LABS: Calcium* 10.3 mg/dL (8.4-10.6)
[2022-11-09 11:50] LABS: Slide Review Acceptable Review (Acceptable)
--- NOTE | 2022-11-09 12:17 | ONC.NURNOTE ---
CBC CMP results called to Demarcus- as stable, WBC decreasing slightly each lab draw MM Panel pending sees Dr Pan next week
[2022-11-11 12:33] LABS: Albumin 3.58 g/dL (3.75-5.01); Alpha 1 Globulin 0.32 g/dL (0.19-0.46); Alpha 2 Globulin 0.71 g/dL (0.48-1.05); Immunofixation IFE Done; Immunoglobulin A 35 mg/dL (68-408); Immunoglobulin G 1647 mg/dL (768-1632); Immunoglobulin M 54 mg/dL (35-263); Kappa Qnt Free Light Chains 27.93 mg/L (3.30-19.40); Kappa/Lambda Light Chain Ratio 3.78 (0.26-1.65); Lambda Qnt Free Light Chains 7.39 mg/L (5.71-26.30); Monoclonal Protein 1.66 g/dL
== END 2022-11-14 23:59 | disposition home or self-care (01) ==
LOC: CCIC 11:00
PROVIDERS: Internal Medicine Hematology & Oncology; PCP Family Medicine; Referring Provider Family Medicine; Visit Provider Internal Medicine Hematology & Oncology
DX: C91.10 Chronic lymphocytic leukemia of B-cell type not having achieved remission (principal); D47.2 Monoclonal gammopathy; D72.820 Lymphocytosis (symptomatic); Z87.891 Personal history of nicotine dependence; N28.89 Other specified disorders of kidney and ureter; Z87.440 Personal history of urinary (tract) infections
CPT/HCPCS: 36415; 80053; 82232; 82784; 83520; 83615; 84155; 84156; 84165; 85025; 86334; 86335; 99212; 99213; 99214; 99215

== ENCOUNTER 2023-03-20 15:45 | Emergency (ER) | payer MEDICARE, BC, SELFPAY ==
[2023-03-20 15:53] VITALS: BP 150/86; PULSE 92; RESP 18; TEMP 36.2; O2SAT 93; BMI 33.0
[2023-03-20 16:11] LABS: Appearance Urine Clear (Clear); Bilirubin Urine Negative (Negative); Blood Urine 2+ (Negative); Color Urine Yellow (Yellow); Glucose Urine Negative (Negative); Ketones Urine Negative (Negative); Leukocyte Esterase Urine 3+ (Negative); Nitrite Urine Negative (Negative); Protein Urine Negative (Negative); Specific Gravity Urine 1.015 (1.000-1.030); Urobilinogen Urine 0.2 (0.2-1.0); pH Urine 6.5 (5.0-8.5)
--- NOTE | 2023-03-20 16:27 | ED_ITS ---
HPI - Female Genitourinary General Chief complaint: Urogenital Problems, Female Stated complaint: UTI Time Seen by Provider: 03/20/23 15:49 History of Present Illness HPI Narrative: This 67-year-old female comes in reporting dysuria symptoms. She states that she noticed some increased frequency even about 3 weeks ago but this intensified significantly over the past 3 days or so. She states that she has been to the restroom 6 times in the past few hours. She does not report any fevers. She does have some brief pain just prior to voiding urine. She does have a history of urinary tract infections and has had kidney stones in the past. She is being treated for chronic lymphocytic leukemia and her results of that treatment have been holding The leukemia steady. Related Data Home Medications Medication Instructions Recorded Confirmed acetaminophen 500 mg tablet 500 mg PO Q6H PRN 07/20/22 02/17/23 (Tylenol Extra Strength) triamcinolone acetonide 0.025 % 1 applic topical TID PRN 10/12/22 02/17/23 topical cream levothyroxine 100 mcg capsule 100 mcg PO DAILY 11/09/22 02/17/23 Previous Rx's Medication Instructions Recorded desonide 0.05 % topical cream 1 applic topical BID #15 grams 02/17/23 acalabrutinib maleate 100 mg tablet 100 mg PO QDAY #30 tabs 03/17/23 Allergies Allergy/AdvReac Type Severity Reaction Status Date / Time adhesive Allergy Verified 02/17/23 16:21 Penicillins Allergy Verified 02/17/23 16:21 Review of Systems Status of ROS: Reports: 10 or more systems reviewed and unremarkable except as noted in History and below Narrative: Constitutional: No fevers, no weight gain or loss. Eyes: No discharge. No vision changes. HENT: No congestion, no sore throat, no ear pain. Cardiovascular: No chest pain, no palpitations. Respiratory: No shortness of breath, no wheezes, no cough. Gastrointestinal: No abdominal pain, no vomiting, no diarrhea. Genitourinary: increased urinary frequency with brief pain when beginning to void urine. No hematuria. Musculoskeletal: Normal range of motion. Skin: No rashes, no pruritis. Neurological: No dizziness, weakness, sensory change, speech change. Endo/Heme/Allergies: No bruising or bleeding. No polydipsia. Pysch: no suicidality, no anxiety, no insomnia. All other systems reviewed and are negative. 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 HEENT: Normocephalic, atraumatic. Neck: Normal range of motion. Nontender. Supple. Heart: Regular. No murmurs. Normal rate. Intact distal pulses. Lungs: Clear to auscultation. No chest discomfort. No wheezes, rhonchi, or rales. Abdomen: Normal bowel sounds. Nontender. No rebound tenderness. Genitalia: Deferred. Back: No midline tenderness. Normal range of motion. Extremities: Normal range of motion. No injury. Skin: Intact. No rash. Warm. No erythema or pallor. Neurologic: No altered sensation. No weakness. Alert and oriented. Psychiatric: No suicidality. No anxiety or depression. No insomnia. Nursing notes and vitals signs are reviewed. Const: Vital Signs, click to edit/add: Vital Signs - 24 hr 03/20/23 15:53 Temperature 97.2 F L Pulse Rate [Right Pulse Oximeter] 92 Respiratory Rate 18 Blood Pressure [Ri ght Upper Arm] 150/86 H Pulse Oximetry 93 Oxygen Delivery Me thod Room Air Course Vital Signs Vital signs: Initial Vital Signs Temperature 97.2 F L 03/20/23 15:53 Temperature Source Temporal Artery Scan 03/20/23 15:53 Pulse Rate 92 03/20/23 15:53 Respiratory Rate 18 03/20/23 15:53 Blood Pressure 150/86 H 03/20/23 15:53 Blood Pressure Mean 107 H 03/20/23 15:53 Blood Pressure Position Sitting 03/20/23 15:53 Pulse Oximetry 93 03/20/23 15:53 Oxygen Delivery Method Room Air 03/20/23 15:53 Vital Signs Temperature 97.2 F L 03/20/23 15:53 Pulse Rate 92 03/20/23 15:53 Respiratory Rate 18 03/20/23 15:53 Blood Pressure 150/86 H 03/20/23 15:53 Pulse Oximetry 93 03/20/23 15:53 Oxygen Delivery Method Room Air 03/20/23 15:53 Temperature 97.2 F L 03/20/23 15:53 Pulse Rate 92 03/20/23 15:53 Respiratory Rate 18 03/20/23 15:53 Blood Pressure 150/86 H 03/20/23 15:53 Pulse Oximetry 93 03/20/23 15:53 Oxygen Delivery Method Room Air 03/20/23 15:53 MDM - Female Genitourinary MDM Narrative Medical decision making narrative: This patient comes in with dysuria symptoms as described above. A urinalysis is obtained and shows obvious sign of urinary tract infection. The patient received a prescription for Keflex. She has a follow-up appointment in 2 days with her primary physician. Lab Data Labs: Lab Results 03/20/23 Range/Units Unknown Urine Color Yellow (Yellow) Urine Appearance Clear (Clear) Urine pH 6.5 (5.0-8.5) Ur Specific [place] 1.015 (1.000-1.030) Urine Protein Negative (Negative) Urine Glucose (UA) Negative (Negative) Urine Ketones Negative (Negative) Urine Blood 2+ A (Negative) Urine Nitrite Negative (Negative) Urine Bilirubin Negative (Negative) Urine Urobilinogen 0.2 (0.2-1.0) Ur Leukocyte Esterase 3+ A (Negative) Urine RBC >100 A (0-2) Urine WBC >100 A (0-5) Ur Squamous Epith Cells None (None-Few) Urine Bacteria Few A (None) Discharge Plan Discharge Clinical Impression: Urinary tract infection Patient Disposition: Home, Self-Care Condition: Stable Additional Instructions: Take medication as prescribed. Follow up with MD as scheduled or return if worsening. Prescriptions: No Action triamcinolone acetonide 0.025 % cream 1 applic topical TID PRN acetaminophen [Tylenol Extra Strength] 500 mg tablet 500 mg PO Q6H PRN desonide 0.05 % cream 1 applic topical BID Qty: 15 0RF levothyroxine 100 mcg capsule 100 mcg PO DAILY acalabrutinib maleate 100 mg tablet 100 mg PO QDAY Qty: 30 6RF Follow Up/Referrals: Digna Quarles MD [Primary Care Provider] - Stand Alone Forms: [email or web address] Info Instructions
[2023-03-20 16:36] LABS: Bacteria Urine Few; RBC Urine >100 (0-2); WBC Urine >100 (0-5)
== END 2023-03-20 16:58 | disposition home or self-care (01) ==
PROVIDERS: Emergency Provider Emergency Medicine Emergency Medical Services; PCP Family Medicine
DX: N39.0 Urinary tract infection, site not specified (principal)
CPT/HCPCS: 81001; 87086; 87186; 99283; 99284

== ENCOUNTER 2023-03-29 10:00 | Outpatient (RCR) | payer MEDICARE, BC, SELFPAY ==
--- NOTE | 2022-11-30 10:11 | ONC.NURNOTE ---
Demarcus called and reports new onset of hives on her face only She has an appt with an TRANSITION COACH/PA at [facility] today for evaluation patient was questioning if this office has any suggestions for hives copywriter informed patient that she is managing this new occurrence appropriately and that the PCP will be able to make recommendations based on their physical exam
[2022-12-14 13:42] LABS: Eosinophils Percent Auto 1.9 % (0.0-7.0); Hematocrit 39.3 % (33.0-51.0); Hemoglobin* 12.6 gm/dL (12.0-16.0); Lymphocytes Percent Auto 36.2 % (20-44); Mean Corpuscular HGB Conc 32 gm/dL (32-36); Mean Corpuscular Hemoglobin 30 pg (26-34); Mean Corpuscular Volume 95 fL (80-100); Monocytes Percent Auto 5.6 % (0.0-11.0); Neutrophils Percent Auto 55.5 % (42.0-72.0); Platelet Count* 264 K/uL (140-440); RDW Coefficient of Variation % 13.7 % (11.5-15.5); Red Blood Count 4.16 m/uL (4.00-5.20); White Blood Count* 18.34 K/uL (4.50-11.00)
[2022-12-14 13:43] LABS: Basophils Percent Auto 0.4 % (0.0-3.0); Immature Granulocytes Pct Auto 0.4 %; Slide Review Reflex No
[2022-12-14 14:48] LABS: Chloride* 105 mmol/L (96-114); Potassium* 4.8 mmol/L (3.6-5.1); Sodium* 138 mmol/L (135-149)
[2022-12-14 14:49] LABS: Alanine Aminotransferase* 13 U/L (4-35); Albumin* 3.9 g/dL (3.3-5.0); Alkaline Phosphatase* 102 U/L (40-150); Anion Gap 6 mEq/L (7-15); Aspartate Amino Transferase* 20 U/L (12-35); Bilirubin Total* 0.4 mg/dL (0.1-1.5); Blood Urea Nitrogen* 16 mg/dL (7-30); Carbon Dioxide* 27 mmol/L (20-32); Creatinine* 0.9 mg/dL (0.5-1.5); Estimated Glomerular Filt Rate 69 ml/min; Glucose* 89 mg/dL (60-115); Total Protein* 7.6 g/dL (6.0-8.3)
--- NOTE | 2022-12-16 14:58 | ONC.NURNOTE ---
EKG order faxed to [facility]- standard medication monitoring for calquence due Dec/Jan PCP Dr Quarles
--- NOTE | 2022-12-30 16:06 | ONC.NURNOTE ---
Orders for repeat EKG monitoring for Calquence faxed to [facility]- Nfd- they will call patient to set up appt Message left for Demarcus- that they will be calling to schedule.
[2023-01-11 14:03] LABS: Basophils Percent Auto 0.4 % (0.0-3.0); Eosinophils Percent Auto 2.1 % (0.0-7.0); Hematocrit 39.5 % (33.0-51.0); Hemoglobin* 12.9 gm/dL (12.0-16.0); Immature Granulocytes Pct Auto 0.3 %; Lymphocytes Percent Auto 44.5 % (20-44); Mean Corpuscular HGB Conc 33 gm/dL (32-36); Mean Corpuscular Hemoglobin 30 pg (26-34); Mean Corpuscular Volume 92 fL (80-100); Monocytes Percent Auto 4.9 % (0.0-11.0); Neutrophils Percent Auto 47.8 % (42.0-72.0); Platelet Count* 245 K/uL (140-440); White Blood Count* 17.79 K/uL (4.50-11.00)
[2023-01-11 14:15] LABS: Slide Review Reflex No
[2023-01-11 14:27] LABS: Albumin* 4.1 g/dL (3.3-5.0); Sodium* 136 mmol/L (135-149)
[2023-01-11 14:28] LABS: Potassium* 4.1 mmol/L (3.6-5.1)
[2023-01-11 14:30] LABS: Alanine Aminotransferase* 13 U/L (4-35); Alkaline Phosphatase* 94 U/L (40-150); Bilirubin Total* 0.5 mg/dL (0.1-1.5); Blood Urea Nitrogen* 14 mg/dL (7-30); Creatinine* 0.8 mg/dL (0.5-1.5); Estimated Glomerular Filt Rate 80 ml/min; Glucose* 108 mg/dL (60-115); Lactate Dehydrogenase* 119 U/L (120-246)
[2023-01-11 14:31] LABS: Calcium* 10.8 mg/dL (8.4-10.6)
[2023-01-11 14:43] LABS: Chloride* 107 mmol/L (96-114)
[2023-01-11 14:46] LABS: Anion Gap 8 mEq/L (7-15); Aspartate Amino Transferase* 22 U/L (12-35); Carbon Dioxide* 21 mmol/L (20-32)
[2023-01-13 23:57] LABS: Albumin 3.66 g/dL (3.75-5.01); Alpha 1 Globulin 0.35 g/dL (0.19-0.46); Alpha 2 Globulin 0.73 g/dL (0.48-1.05); Immunofixation IFE Done; Immunoglobulin A 37 mg/dL (68-408); Immunoglobulin G 1858 mg/dL (768-1632); Immunoglobulin M 56 mg/dL (35-263); Kappa Qnt Free Light Chains 33.24 mg/L (3.30-19.40); Kappa/Lambda Light Chain Ratio 3.42 (0.26-1.65); Lambda Qnt Free Light Chains 9.73 mg/L (5.71-26.30); Total Protein, Serum 7.3 g/dL (6.3-8.2)
[2023-03-22 11:26] LABS: Basophils Percent Auto 0.4 % (0.0-3.0); Eosinophils Percent Auto 2.4 % (0.0-7.0); Hematocrit 39.5 % (33.0-51.0); Hemoglobin* 12.7 gm/dL (12.0-16.0); Immature Granulocytes Pct Auto 0.3 %; Lymphocytes Percent Auto 46.8 % (20-44); Mean Corpuscular HGB Conc 32 gm/dL (32-36); Mean Corpuscular Hemoglobin 30 pg (26-34); Mean Corpuscular Volume 92 fL (80-100); Monocytes Percent Auto 6.1 % (0.0-11.0); Platelet Count* 231 K/uL (140-440); RDW Coefficient of Variation % 14.5 % (11.5-15.5); White Blood Count* 14.92 K/uL (4.50-11.00)
[2023-03-22 11:38] LABS: Albumin* 4.2 g/dL (3.3-5.0); Chloride* 109 mmol/L (96-114); Potassium* 4.6 mmol/L (3.6-5.1); Sodium* 137 mmol/L (135-149)
[2023-03-22 11:41] LABS: Alanine Aminotransferase* 10 U/L (4-35); Alkaline Phosphatase* 95 U/L (40-150); Anion Gap 4 mEq/L (7-15); Aspartate Amino Transferase* 19 U/L (12-35); Bilirubin Total* 0.4 mg/dL (0.1-1.5); Blood Urea Nitrogen* 15 mg/dL (7-30); Carbon Dioxide* 24 mmol/L (20-32); Creatinine* 0.9 mg/dL (0.5-1.5); Estimated Glomerular Filt Rate 69 ml/min; Glucose* 101 mg/dL (60-115); Total Protein* 7.7 g/dL (6.0-8.3)
[2023-03-22 11:42] LABS: Calcium* 10.6 mg/dL (8.4-10.6)
[2023-03-22 11:49] LABS: Slide Review Reflex Yes
[2023-03-22 11:50] LABS: Slide Review Acceptable Review (Acceptable)
[2023-03-25 02:36] LABS: Albumin 3.66 g/dL (3.75-5.01); Alpha 1 Globulin 0.33 g/dL (0.19-0.46); Immunofixation IFE Done; Immunoglobulin A 34 mg/dL (68-408); Immunoglobulin G 1749 mg/dL (768-1632); Immunoglobulin M 44 mg/dL (35-263); Kappa Qnt Free Light Chains 26.92 mg/L (3.30-19.40); Kappa/Lambda Light Chain Ratio 3.09 (0.26-1.65); Lambda Qnt Free Light Chains 8.72 mg/L (5.71-26.30); Monoclonal Protein 1.73 g/dL; Total Protein, Serum 7.1 g/dL (6.3-8.2)
== END 2023-05-15 23:59 | disposition home or self-care (01) ==
LOC: CCIC 10:00
PROVIDERS: PCP Family Medicine; Referring Provider Family Medicine; Visit Provider Internal Medicine Hematology & Oncology
DX: C91.10 Chronic lymphocytic leukemia of B-cell type not having achieved remission (principal); D72.820 Lymphocytosis (symptomatic); D47.2 Monoclonal gammopathy; Z87.891 Personal history of nicotine dependence
CPT/HCPCS: 36415; 80053; 82784; 83520; 83615; 84155; 84165; 85025; 86334; 99212; 99214

== ENCOUNTER 2023-09-01 10:27 | Outpatient (CLI) | payer MEDICARE, BC, SELFPAY ==
--- OUTSIDE RECORDS SUMMARY | 2023-09-01 10:31 | XMS_ITS | Clinical Summary ---
Author Name Unknown Organization [facility] Address [place], [place] [address] Care Team Providers Care Publicity Director Name Role Phone Digna Quarles MD Primary Care Provide r Richard Lane MD Unavailable [phone] Nela Small [facility] Unavailable Allergies Active Allergy Reactions Criticality Noted Date Comments Adhesive Rash 11/01/2014 Doxycycline Nausea Only 07/03/2016 Niacin Rash,Palpitations,Fl ushi ng 11/01/2013 Penicillins Hives High Pt states she had hives many years ago Medications Medication Sig Dispensed Refills Start Date End Date Status Calquence, acalabrutinib mal, 100 mg tablet Take 100 mg by mouth one time. 08/31/2022 Active triamcinolone (ARISTOCORT; KENALOG) 0.1 % creamIndications:Foll iculitis Apply topically to affected area(s) three times daily. 80 g 1 10/08/2022 Active levothyroxine (SYNTHROID) 100 mcg tabletIndications:Hyp othyroidism, unspecified type Take 1 Tablet (100 mcg) by mouth before breakfast. 90 Tablet 3 10/13/2022 Active fluticasone (50 mcg per actuation) nasal solution (FLONASE)Indications: Sinus pressure Inhale 2 Sprays into affected nostril(s) two times daily. 16 g 06/30/2023 Active Active Problems Problem Noted Date Diagnosed Date CLL (chronic lymphocytic leukemia) 01/20/2022 Acute eczematoid otitis externa of left ear 01/18 Sepsis 04/10/2017 Fungal pneumonia 12/08/2016 Postprocedural pneumothorax 09/23/2016 MGUS (monoclonal gammopathy of unknown significa nce) 06/04/2016 Incomplete bladder emptying 11/20/2015 Recurrent UTI 11/20/2015 Acute pyelonephritis 10/13/2014 Presbyopia OU 05/02/2013 Bacteremia 11/18/2012 ACP (advance care planning) 08/14/2012 Atrophic kidney 08/29/2011 Overview: Right kidney smaller than left on ultrasound 2007. Nephrolithiasis 08/29/2011 Overview: Right sided kidney stone in proximal ureter 08/28/11 with hydronephrosis. Tobacco abuse 03/25/2010 Overview: Around 1/2 ppd. Autoimmune hepatitis 04/26/2009 Overview: On imuran Unspecified hypothyroidism Overview: On synthroid Other and unspecified hyperlipidemia Lung infiltrate on CT Lung nodule Ureteral calculus Resolved Problems Problem Noted Date Diagnosed Date Resolved Date PAD (peripheral artery disease) 08/04/2022 06/03/2023 Lymphoproliferative disorder 07/30/2021 06/03/2023 MGUS (monoclonal gammopathy of unknown significance) 05/21/2016 06/04/2016 Incomplete emptying of bladder 09/11/2015 12/08/2016 EVERETTE (acute kidney injury) 10/14/2014 Flank pain 10/13/2014 12/08/2016 Kidney stone 10/13/2014 02/10/2018 Sepsis(995.91) 11/18/2012 05/05/2013 Sepsis due to urinary tract infection 08/14/2012 05/05/2013 UTI (urinary tract infection) 08/31/2011 05/05/2013 Nausea with vomiting 08/30/2011 014 Back pain 08/30/2011 02/10/2018 Other chronic hepatitis 09/15/2007 12/0 10/2009 Nonspecific elevation of lev els of transaminase or lactic acid dehydrogenase (LDH) 09/15/2007 08/29/2011 Excessive or frequent menstruation 01/16/2011 Overview: s/p hysterectomy Encounters Date Type Department Care Team Description 07/20/2023 4:10 PM CDT E-Visit [facility] [address] [place] [address] Ric Gill MD eVisit for Urinary Tract Infection 06/30/2023 9:20 AM CDT Telemedicine [facility] [address] [place] [address] Josefa Montez, ADRIANA Telehealth (sinus infection, no vitals. ) 06/03/2023 1:00 PM SCOOTER MECHANIC Office Visit [facility] [address] [place] [address] Digna Quarles MD Shoulder Pain/problem (Left shoulder ache and discomfort, thinks it may of been a injury./-ain increases with lifting arm even with shoulder/Ongoing for 6-8 weeks/-Slight improvement sometimes then returns/cold pack at night several times and Tylenol a few times/Improving but slowly); Thyroid Problem (Would like to have thyroid checked, feels there are some symptoms.); Cough (Lingering cold) 06/03/2023 Travel from Last 3 Months Immunizations Name Administration Dates Next Due AMB Influenza, IIV4 PF (=>6 mos Flulaval,Fluzone Fluarix)(Flu Clinic Only) 01/14/2018,03/25/2016 COVID-19 vaccine (Moderna 100mcg/0.5mL) PF, MDV 07/29/2020,07/01/2020 DTaP 01/16/2011 Dtap-5 Pertussis Antigens 01/16/2011 Influenza A (H1N1), Inactiva zaida (Age 6-35 Mos) 03/06/2009 Influenza Virus, Unspecified 01/10/2019, 01/31/2015,02/05/2014,2012,02/09/2012,03/06/2009,01/23/2009 Influenza, High-dose Inactivated 01/21/2023 Influenza, High-dose Quadriv alent Inactivated 01/21/2023,01/23/2022,01/08/2021,2019 Influenza, IIV3 (Age >=3 years) 01/31/2015,02/14,02/16/2012 Influenza, IIV4 02/10/2017,01/17/2014 Influenza, Inactivated IIV3 (Age 65+ Years) Preserv Free 01/10/2019 Pneumococcal Poly,23-Valent (Pneumovax) 12/16/2017 Pneumococcal conj 13-Valent (Prevnar 13) 12/10/2016 Td (Age >=7 Years) 06/18/1997 Tdap 12/31/2022 Zoster (Shingrix-RZV, recombinant) 03/13/2020, Family History Medical History Relation Name Comments Diabetes Mother Stroke Mother Relation Name Status Comments Mother Social History Tobacco Use Types Packs/Day Years Used Date Smoking Tobacco: Every Day Cigarettes 0.5 30 Smokeless Tobacco: Never Tobacco Cessation:Ready to Q uit: No; Counseling Given: Yes Alcohol Use Standard Drinks/Week Comments No 0 (1 standard drink = 0.6 oz pur e alcohol) PHQ-2 Answer Date Recorded PHQ-2 Score 2 03/07/2019 Social Connections Answer Date Recorded Frequency of Communication with Friends and Fami ly Not on file 01/21/2023 Financial Resource Strain Answer Date R ecorded Difficulty of Paying Living Expenses 3 01/20/2022 Difficulty of Paying Living Expenses Not on file 01/20/2022 Food Insecurity Answer Date Recorded Worried About Running Out of Food in the Last Ye ar 1 01/20/2022 Transportation Needs Answer Date Record ed Lack of Transportation (Medical) 1 01/20/2022 Housing Stability Answer Date Recorded Unable to Pay for Housing in the Last Year 1 01/20/2022 Sex and Gender Information Value Date Recorded Sex Assigned at Not on file Gender Identity Not on file Sexual Orientation Not on file Obstetrics History Last Filed Vital Signs Vital Sign Reading Time Taken Comments Blood Pressure 121/78 06/03/2023 12:57 PM [employer]ER MECH[employer] Pulse 85 06/03/2023 12:57 PM [employer]ER MECH[employer]IC Temperature 36.6 ??C (97.9 ??F) 11/30/2022 1:40 PM CD T Respiratory Rate 20 12/27/2018 9:22 AM CDT Oxygen Saturation 98% 06/03/2023 12: 57 PM [employer]ER MECH[employer]IC Inhaled Oxygen Concentration - - Weight 97.4 kg (214 lb 12.8 oz) 024 12:57 PM [employer]ER MECH[employer] Height 170.2 cm (5' 7) 08/04/2022 10:3 7 AM CDT Body Mass Index 33.64 08/04/2022 10:37 AM CDT Plan of Treatment Health Maintenance Due Date Last Done Comments DEXA/DXA scan for age 65+ 2018 Medicare Wellness for age 65+ 2018 Depression screening for age 12+ 03/08/2020 03/08/2019, 03/07/2019, 02/10/2018, Additional history exists Fecal testing non-DNA (FIT,FOBT,iFOBT) for age 45-75 03/08/2020 03/08/2019 Mammogram for age 45-75 09/05/2021 09/05/2020 Pneumococcal series for age 65+ (3 of 3 - PPSV23 or PCV20) 12/16/2022 12/16/2017, 12/10/2016 COVID-19 vaccine series ( season) 2022 03/06/2022, 02/26/2021, 07/29/2020, Additional history exists BMI (ht and wt on same day) for age 18+ 08/05/2023 08/04/2022, 07/16/2021, 11/19/2020, Additional history exists Influenza for age 65+ 12/19/2023 01/21/2023 , 01/21/2023, 01/23/2022, Additional history exists Fecal testing sDNA-FIT (Hume guard) for age 45-75 10/29/2025 10/29/2022 Lipids for age 45-75 10/09/2027 10/08/2022, 03/18/2010, 04/24/2009, Additional history exists Tetanus booster 12/31/2032 12/31/2022, 12/20, 06/18/1997 Hepatitis C screening for ag e 18-79 Completed 09/05/2007 Zoster (shingles) series for age 50+ Completed 03/13/2020, 01/03/2020 Tdap Completed 12/31/2022 Medical Devices Implanted Type Area Destination Coordinator Device Identifier Shelf Expiration Date Model / Serial / Lot Stent Contour [id number] - [id number] Implanted:Qty: 1 on 08/30/2011 at [facility] Left: Ureter [facility] [id number]# / / [id number] Stent Prcflx [id number] Hydpls - [id number] Implanted:Qty: 1 on 08/12/2012 by Jerry Roach MD at [facility] Left: Ureter [facility] 04/18/2012 [id number]# / / [id number] Stent Prcflx [id number] Hydpls - [id number] Implanted:Qty: 1 on 11/17/2012 by Gavin Banks MD at [facility] Right: Ureter 08/17/2015 [id number]# / / [id number] Stent Urtrl Prcflx [id number] - [id number] Implanted:Qty: 1 on 11/30/2012 by Fran Meehan MD at [facility] Ureter [facility] [id number]# / / [id number] Stent Contour [id number] - [id number] Implanted:Qty: 1 on 10/14/2014 by Piotr Jacob MBBS at [facility] Left: Ureter [facility] [id number]# / / [id number] Stent Uret [id number] Contour - [id number] Implanted:Qty: 1 on 03/17/2017 by Campos Evans MD at [facility] Left: Ureter [facility] 180-222# / / [id number] Stent Uret [id number] Silhouette - [id number] Implanted:Qty: 1 on 04/09/2017 by Tobin Chacko MD at [facility] Left: Ureter [employer] 09/21/2019 [id number] / / [id number] Stent Uret [id number] Silhouette - [id number] Implanted:Qty: 1 on 04/09/2017 by Tobin Chacko MD at [facility] Right: Ureter [employer] 09/21/2019 [id number] / / [id number] Procedures Procedure Name Priority Date/Time Associated Diagnosis Comments TSH WITH REFLEX Routine 06/03/2023 2:24 PM SCOOTER MECH[employer]IC Hypothyroidism, unspecified type SDNA-FIT EXTERNAL (COLOGUARD) Routine 10/29/2022 9:00 AM CDT Screening for colon cancer LIPID PANEL W REFLEX MEASURED LDL Routine 10/08/2022 1:43 PM CDT Lipid screening XR MAMMO BEVERLEY BILAT SCREEN Routine 09/05/2020 10:43 AM CDT Visit for screening mammogram OCCULT BLOOD IFOBT STOOL Routine 03/08/2019 8:00 AM SCOOTER MECHANIC Screening for colon cancer ANTI HCV Routine 09/05/2007 2:11 PM CDT Elevated Levels Of Transaminase Or Ldh Malaise And Fatigue Joint Pain from Last 3 Months or Most Recently Relevant to Health Maintenance Results * TSH WITH REFLEX (06/03/2023 2:24 PM SCOOTER MECHANIC) TSH 2.96 0.27 - 4.20 uIU/mL 06/03/2023 9:28 PM SCOOTER MECHANIC [facility] Blood BLOOD SPECIMEN / Unknown Venipuncture / Unknown 06/03/2023 2:24 PM SCOOTER MECHANIC 06/03/2023 2:24 PM SCOOTER MECHANIC Narrative [facility] - 06/03/2023 9:28 PM SCOOTER MECHANIC In Adults, TSH values between 5.00 and 10.00 uIU/ml do not necessarily indicate the presence of Hypothyroidism. Correlation with clinical findings such as presence of goiter and/or Thyroperoxidase (TPO) Antibody may be helpful. For more information please refer to ANGI 2004; 291: 228-238. Digna Quarles MD CHEMISTRY [facility] [address] [place] [address], * SDNA-FIT EXTERNAL (COLOGUARD) (10/29/2022 9:00 AM CDT) NONINV COLON CA DNA+OCC BLD SCRN STL-IMP Negative Negative 11/04/2022 10:37 AM CDT [facility] (CLIA #:[id number]) Comment: NEGATIVE TEST RESULT. A negative Cologuard result indicates a low likelihood that a colorectal cancer (CRC) or advanced adenoma (adenomatous polyps with more advanced pre-malignant features) ??is present. The chance that a person with a negative Cologuard test has a colorectal cancer is less than 1 in 1500 (negative predictive value >99.9%) or has an ??advanced adenoma is less than ??5.3% (negative predictive value 94.7%). These data are based on a prospective cross-sectional study of 10,000 individuals at average risk for colorectal cancer who were screened with both Cologuard and colonoscopy. (Luis Manuel Dupree et al, N Engl J Med 2014;370(14):1286- 1297) The normal value (reference range) for this assay is negative. COLOGUARD RE-SCREENING RECOMMENDATION: Periodic colorectal cancer screening is an important part of preventive healthcare for asymptomatic individuals at average risk for colorectal cancer. ??Following a negative Cologuard result, the Chinese Cancer Society and U.S. Multi-Society Task Force screening guidelines recommend a Cologuard re-screening interval of 3 years. References: Chinese Cancer Society Guideline for Colorectal Cancer Screening: https://www.cancer.org/cancer/zupcj-olpcrn-jewezv/yszgrlxbo-anwmfabqt-dgclqsw/ac s-rec ommendations.html.; Carlos HUNT, Keisha SANTILLAN, Adia HarrisK, Colorectal Cancer Screening: Recommendations for Physicians and Patients from the U.S. Multi-Society Task Force on Colorectal Cancer Screening , Am J Gastroenterology 2017; 112:3968-5886. TEST DESCRIPTION: Composite algorithmic analysis of stool DNA-biomarkers with hemoglobin immunoassay. ?? Quantitative values of individual biomarkers are not reportable and are not associated with individual biomarker result reference ranges. Cologuard is intended for colorectal cancer screening of adults of either sex, 45 years or older, who are at average-risk for colorectal cancer (CRC). Cologuard has been approved for use by the U.S. FDA. The performance of Cologuard was established in a cross sectional study of average-risk adults aged 50-84. Cologuard performance in patients ages 45 to 49 years was estimated by sub-group analysis of near-age groups. Colonoscopies performed for a positive result may find as the most clinically significant lesion: colorectal cancer [4.0%], advanced adenoma (including sessile serrated polyps greater than or equal to 1cm diameter) [20%] or non- advanced adenoma [31%]; or no colorectal neoplasia [45%]. These estimates are derived from a prospective cross-sectional screening study of 10,000 individuals at average risk for colorectal cancer who were screened with both Cologuard and colonoscopy. (Luis Manuel Dupree et al, N Engl J Med 2014;370(14):2001-6801.) Cologuard may produce a false negative or false positive result (no colorectal cancer or precancerous polyp present at colonoscopy follow up). A negative Cologuard test result does not guarantee the absence of CRC or advanced adenoma (pre-cancer). The current Cologuard screening interval is every 3 years. (Chinese Cancer Society and U.S. Multi-Society Task Force). Cologuard performance data in a 10,000 patient pivotal study using colonoscopy as the reference method can be accessed at the following location: www.ParentingInformer/results. Additional description of the Cologuard test process, warnings and precautions can be found at www.MegaHootogBindHQrd.com. Stool specimen (specimen) (Rectum) 10/29/2022 9:00 AM CDT 10/30/2022 8:35 PM CDT Digna Quarlse MD URINE [facility] (CLIA #:[id number]) [address] [place] [address], * (ABNORMAL) LIPID PANEL W REFLEX MEASURED LDL (10/08/2022 1:43 PM CDT) CHOLESTEROL,TOTAL 231(H) 100 - 199 mg/dL 10/08/2022 11:25 PM CDT [facility] Comment: Cholesterol, Total Reference Ranges Desirable <200 mg/dL Borderline 200-239 mg/dL High >=240 mg/dL TRIGLYCERIDES 120 <150 mg/dL 10/08/2022 11:25 PM CDT [facility] HDL CHOLESTEROL 46 >40 mg/dL 11:25 PM CDT [facility] NON-HDL CHOLESTEROL 185(H) <145 mg/dl 10/08/2022 11:25 PM CDT [facility] CHOL/HDL RATIO 5.02(H) <4.50 10/08/2022 11:25 PM CDT [facility] LDL CHOLESTEROL 161(H) <=130 mg/dL 10/08/2022 11:25 PM CDT [facility] VLDL CHOLESTEROL 24 <=30 mg/dL 10/08/2022 11:25 PM CDT [facility] PROVIDER ORDERED STATUS RANDOM 10/08/2022 11:25 PM CDT [facility] Blood BLOOD SPECIMEN / Unknown Venipuncture / Unknown 10/08/2022 1:43 PM CDT 10/08/2022 1:44 PM CDT Digna Quarles MD [facility] [address] [place] [address], * XR MAMMO BEVERLEY BILAT SCREEN (09/05/2020 10:43 AM CDT) Anatomical Region Laterality Modality BREASTS, Breast Left, Breast Right Bilateral Mammography Impressions 09/05/2020 3:41 PM CDT ??There is no radiographic evidence for malignancy. ??Recommend annual mammograms. MAMMOGRAM ASSESSMENT: ??ACR 1 Negative PATIENTS: You will also receive a letter with your examination results in an easy to read format. ??If you have questions about your results, please contact your referring provider. Narrative 09/05/2020 3:41 PM CDT XR MAMMO BEVERLEY BILAT SCREEN [[id number]] CLINICAL HISTORY: ??This is an asymptomatic 65 y.o. patient. INDICATION FOR EXAM: Mammogram Screening. TECHNIQUE: CC & MLO views were obtained. ??This ?? study was evaluated with the assistance of Computer-Aided Detection. Breast Tomosynthesis was used in interpretation. COMPARISON FILM: This is a baseline study. ? FINDINGS: ??The breasts have scattered areas of fibroglandular density. There are no dominant masses, suspicious micro calcifications or areas of architectural distortion. Digna Quarles MD MAMMO * OCCULT BLOOD IFOBT STOOL (03/08/2019 8:00 AM SCOOTER MECHANIC) STOOL BLOOD ,IFOBT Negative Negative 03/08/2019 11:06 AM SCOOTER MECHANIC [facility] Stool STOOL SPECIMEN / Unknown Non-Blood / Unknown 03/08/2019 8:00 AM SCOOTER MECHANIC 03/08/2019 10:42 AM SCOOTER MECHANIC Rodney Miller MD LABORATORY [facility] [address] [place] [address], * ANTI HCV (09/05/2007 2:11 PM CDT) ANTI HCV Non-reacti ve [facility] Blood specimen (specimen) BLOOD SPECIMEN / Unknown 09/05/2007 2:11 PM CDT 09/05/2007 2:09 PM CDT Kevin Ngo MD SEND OUTS [facility] [place]NAL ZIP [address] [place] [id number] from Last 3 Months or Most Recently Relevant to Health Maintenance Advance Directives * Full Code (Latest Code Status on File) Date Activated Date Inactivated Comments 04/10/2017 2:56 PM 04/12/2017 2:17 PM * Full Code Date Activated Date Inactivated Comments 04/09/2017 12:24 PM 04/10/2017 2:42 AM * Full Code Date Activated Date Inactivated Comments 03/17/2017 1:56 AM 03/19/2017 6:58 PM * Full Code Date Activated Date Inactivated Comments 09/23/2016 6:58 PM 09/24/2016 1:59 PM * Full Code Date Activated Date Inactivated Comments 10/13/2014 8:16 PM 10/16/2014 1:56 PM Care Teams Publicity Director Relationship Specialty Start Date End Date Digna Quarles MD [address] [place] [address] PCP - General 08/25/[address] MD [address] [place] [address] Rheumatology Rheumatology 07/10/13 Nela Small, CARLOS [address] [place] [address] Oncology Clinical Nurse Specialist 08/05/16
--- NOTE | 2023-09-01 11:00 | CT_ITS ---
Patient: BLAISE CHANDLER Facility:?[facility] Patient ID:?[id number] Site Patient ID:?[id number]. Site :?[id number] Study:?CT-Chest/Abd/Pelvis w/ 105cc [id number]/15/2024 11:21:43 AM Ordering Physician:Isael Pan Final Report: Indication: Monoclonal gammopathy (not achieving remission) Technique: CT Chest/Abd/Pelvis w/ 105cc [id number] Please note that all CT scans at this facility use dose modulation, iterative reconstruction, and/or weight-based dosing when appropriate to reduce radiation dose to as low as reasonably achievable. Comparison: CT head 07/30/2022, CT chest abdomen pelvis 02/07/2022 Findings: In the chest, subcentimeter bilateral axillary lymph nodes are present, decreased in size compared to the more recent exam. Residual subcentimeter lymph nodes in the mediastinum noted. No pleural effusion or pericardial effusion. No infiltrate or edema. Linear subsegmental scarring in the left lung base. Similar nodular density within the left perihilar lung measuring 12 millimeters. No pneumothorax or pulmonary edema. Calcified granuloma in the anterior left lung. 2 millimeter probable calcified nodule within the right lower lobe. No fracture. In the abdomen, there is no suspicious intrahepatic mass. No calcified gallstone or biliary obstruction. The pancreas is normal. Incidental splenule is present. Similar appearance of the adrenal glands with thickening on the left. Multiple calcifications within the left kidney again noted. These measure up to 2 cm. Scarring within the posterior right kidney with multiple small right renal cysts. No hydronephrosis. Mild prominence of the left ureter without ureteral stone. Multiple enlarged retroperitoneal lymph nodes are decreased in size from the prior exam, measuring up to 1.7 cm, previously measuring up to 4 cm or more. Atherosclerotic change without aneurysm. In the pelvis, the bladder is similar. No bladder stone. No bowel obstruction. Mild diverticulosis. No diverticulitis. No inflammatory changes. Decreased size of pelvic lymph nodes compared to the prior study along the pelvic sidewalls. Degenerative changes. No fracture. No suspicious osseous lesion. Impression: Decreased adenopathy in the mediastinum, axilla and retroperitoneum compared to the CT PET scan 07/30/2022. Multiple large nonobstructing renal calculi. Chronic thickening left adrenal gland. Mild sigmoid diverticulosis. Stable non PET avid pulmonary nodular density left perihilar lung. Please note that all CT scans at this facility use dose modulation, iterative reconstruction, and/or weight-based dosing when appropriate to reduce radiation dose to as low as reasonably achievable. Dictated by Cl Ramirez MD @ 09/06/2023 12:50:30 PM Signed by:?Cl Ramirez MD @09/06/2023 12:50:30 PM (Electronic Signature)
== END 2023-09-01 10:28 | disposition home or self-care (01) ==
LOC: CT 10:27
PROVIDERS: PCP Family Medicine; Visit Provider Internal Medicine Hematology & Oncology
DX: D47.2 Monoclonal gammopathy (principal); N20.0 Calculus of kidney; E27.9 Disorder of adrenal gland, unspecified; K57.30 Diverticulosis of large intestine without perforation or abscess without bleeding; C91.10 Chronic lymphocytic leukemia of B-cell type not having achieved remission; D72.820 Lymphocytosis (symptomatic)
CPT/HCPCS: 71260; 74177; Q9967

== ENCOUNTER 2023-11-26 12:00 | Outpatient (RCR) | payer MEDICARE, BC, SELFPAY ==
--- NOTE | 2023-05-25 12:33 | ONC.NURNOTE ---
[facility] phoned about lab work needed and EKG prior to next weeks appt EKG has been changed to Q 6-12 months monitoring and Myeloma labs are due in June or July with next appt (Q 3-4 mths), last done 03/22/23
[2023-06-09 12:35] LABS: Albumin* 4.1 g/dL (3.3-5.0)
[2023-06-09 12:36] LABS: Chloride* 104 mmol/L (96-114); Potassium* 4.2 mmol/L (3.6-5.1); Sodium* 137 mmol/L (135-149)
[2023-06-09 12:38] LABS: Bilirubin Total* 0.4 mg/dL (0.1-1.5); Creatinine* 0.9 mg/dL (0.5-1.5); Estimated Glomerular Filt Rate 69 ml/min
[2023-06-09 12:39] LABS: Alanine Aminotransferase* 9 U/L (4-35); Alkaline Phosphatase* 93 U/L (40-150); Anion Gap 9 mEq/L (7-15); Aspartate Amino Transferase* 20 U/L (12-35); Blood Urea Nitrogen* 18 mg/dL (7-30); Calcium* 10.8 mg/dL (8.4-10.6); Carbon Dioxide* 24 mmol/L (20-32); Glucose* 93 mg/dL (60-115); Lactate Dehydrogenase* 116 U/L (120-246); Total Protein* 8.1 g/dL (6.0-8.3)
[2023-06-09 13:59] LABS: Basophils Percent Auto 0.5 % (0.0-3.0); Eosinophils Percent Auto 2.4 % (0.0-7.0); Hematocrit 40.1 % (33.0-51.0); Immature Granulocytes Pct Auto 0.3 %; Lymphocytes Percent Auto 46.2 % (20-44); Mean Corpuscular HGB Conc 32 gm/dL (32-36); Mean Corpuscular Hemoglobin 30 pg (26-34); Mean Corpuscular Volume 92 fL (80-100); Monocytes Percent Auto 6.2 % (0.0-11.0); Neutrophils Percent Auto 44.4 % (42.0-72.0); Platelet Count* 244 K/uL (140-440); RDW Coefficient of Variation % 14.6 % (11.5-15.5); Red Blood Count 4.34 m/uL (4.00-5.20); White Blood Count* 15.53 K/uL (4.50-11.00)
[2023-06-09 14:03] LABS: Slide Review Reflex Yes
[2023-06-09 14:24] LABS: Slide Review Acceptable Review (Acceptable)
--- NOTE | 2023-07-09 09:20 | ONC.NURNOTE ---
Addendum entered by Monica Medina RN 07/09/23 13:56: [employer] approved thru 07/08/24 [employer] [place] Case # [id number] Original Note: PA for Don[place] submitted to [employer] via [employer]
[2023-08-27 13:02] LABS: Basophils Percent Auto 0.5 % (0.0-3.0); Eosinophils Percent Auto 2.2 % (0.0-7.0); Hematocrit 39.2 % (33.0-51.0); Hemoglobin* 12.5 gm/dL (12.0-16.0); Immature Granulocytes Pct Auto 0.3 %; Lymphocytes Percent Auto 38.1 % (20-44); Mean Corpuscular HGB Conc 32 gm/dL (32-36); Mean Corpuscular Hemoglobin 30 pg (26-34); Mean Corpuscular Volume 94 fL (80-100); Monocytes Percent Auto 5.4 % (0.0-11.0); Neutrophils Percent Auto 53.5 % (42.0-72.0); Platelet Count* 228 K/uL (140-440); RDW Coefficient of Variation % 14.7 % (11.5-15.5); Red Blood Count 4.19 m/uL (4.00-5.20); White Blood Count* 19.59 K/uL (4.50-11.00)
[2023-08-27 13:08] LABS: Slide Review Reflex Yes
[2023-08-27 13:18] LABS: Chloride* 109 mmol/L (96-114)
[2023-08-27 13:19] LABS: Potassium* 4.6 mmol/L (3.6-5.1); Sodium* 138 mmol/L (135-149)
[2023-08-27 13:21] LABS: Bilirubin Total* 0.4 mg/dL (0.1-1.5); Creatinine* 0.9 mg/dL (0.5-1.5); Estimated Glomerular Filt Rate 69 ml/min
[2023-08-27 13:22] LABS: Alanine Aminotransferase* 8 U/L (4-35); Alkaline Phosphatase* 87 U/L (40-150); Anion Gap 5 mEq/L (7-15); Aspartate Amino Transferase* 18 U/L (12-35); Blood Urea Nitrogen* 21 mg/dL (7-30); Calcium* 10.4 mg/dL (8.4-10.6); Carbon Dioxide* 24 mmol/L (20-32); Glucose* 91 mg/dL (60-115); Slide Review Acceptable Review (Acceptable)
[2023-08-30 09:20] LABS: Albumin 3.58 g/dL (3.75-5.01); Alpha 1 Globulin 0.32 g/dL (0.19-0.46); Alpha 2 Globulin 0.96 g/dL (0.48-1.05); Immunofixation IFE Done; Immunoglobulin A 31 mg/dL (68-408); Immunoglobulin G 1805 mg/dL (768-1632); Immunoglobulin M 39 mg/dL (35-263); Kappa Qnt Free Light Chains 23.88 mg/L (3.30-19.40); Kappa/Lambda Light Chain Ratio 2.92 (0.26-1.65); Lambda Qnt Free Light Chains 8.18 mg/L (5.71-26.30); Monoclonal Protein 1.99 g/dL (<=0.00); Total Protein, Serum 7.3 g/dL (6.3-8.2)
[2023-11-09 09:26] LABS: Kappa Qnt Free Light Chains 23.88; Lambda Qnt Free Light Chains 8.18
[2023-11-09 09:27] LABS: Kappa-Lambda Qt FLC W/ Ratio 2.92
[2023-11-26 12:17] LABS: Basophils Percent Auto 0.4 % (0.0-3.0); Eosinophils Percent Auto 1.8 % (0.0-7.0); Hematocrit 40.1 % (33.0-51.0); Hemoglobin* 12.7 gm/dL (12.0-16.0); Immature Granulocytes Pct Auto 0.3 %; Lymphocytes Percent Auto 33.8 % (20-44); Mean Corpuscular HGB Conc 32 gm/dL (32-36); Mean Corpuscular Hemoglobin 30 pg (26-34); Mean Corpuscular Volume 93 fL (80-100); Neutrophils Percent Auto 58.7 % (42.0-72.0); Platelet Count* 221 K/uL (140-440); RDW Coefficient of Variation % 14.6 % (11.5-15.5); White Blood Count* 20.15 K/uL (4.50-11.00)
[2023-11-26 12:28] LABS: Albumin* 4.2 g/dL (3.3-5.0); Chloride* 106 mmol/L (96-114)
[2023-11-26 12:29] LABS: Potassium* 4.6 mmol/L (3.6-5.1); Sodium* 137 mmol/L (135-149)
[2023-11-26 12:31] LABS: Anion Gap 7 mEq/L (7-15); Aspartate Amino Transferase* 18 U/L (12-35); Bilirubin Total* 0.5 mg/dL (0.1-1.5); Carbon Dioxide* 24 mmol/L (20-32); Estimated Glomerular Filt Rate 61 ml/min; Total Protein* 7.7 g/dL (6.0-8.3)
[2023-11-26 12:32] LABS: Alanine Aminotransferase* 7 U/L (4-35); Alkaline Phosphatase* 91 U/L (40-150); Calcium* 10.7 mg/dL (8.4-10.6); Glucose* 92 mg/dL (60-115); Lactate Dehydrogenase* 137 U/L (120-246)
[2023-11-26 12:33] LABS: Slide Review Reflex No
[2023-11-26 12:48] LABS: Blood Urea Nitrogen* 18 mg/dL (7-30)
[2023-11-29 12:37] LABS: Albumin 3.65 g/dL (3.75-5.01); Alpha 1 Globulin 0.31 g/dL (0.19-0.46); Alpha 2 Globulin 0.71 g/dL (0.48-1.05); Immunofixation IFE Done; Immunoglobulin A 31 mg/dL (68-408); Immunoglobulin G 1671 mg/dL (768-1632); Immunoglobulin M 36 mg/dL (35-263); Kappa Qnt Free Light Chains 21.18 mg/L (3.30-19.40); Kappa/Lambda Light Chain Ratio 2.94 (0.26-1.65); Lambda Qnt Free Light Chains 7.21 mg/L (5.71-26.30); Monoclonal Protein 1.88 g/dL (<=0.00); Total Protein, Serum 7.2 g/dL (6.3-8.2)
== END 2023-12-06 23:59 | disposition home or self-care (01) ==
LOC: CCIC 12:00
PROVIDERS: PCP Family Medicine; Referring Provider Family Medicine; Visit Provider Internal Medicine Hematology & Oncology
DX: C91.10 Chronic lymphocytic leukemia of B-cell type not having achieved remission (principal); D72.820 Lymphocytosis (symptomatic); D47.2 Monoclonal gammopathy; Z87.891 Personal history of nicotine dependence
CPT/HCPCS: 36415; 80053; 82784; 83520; 83615; 84155; 84165; 85025; 86334; 99213; 99214; 99215; G0463

== ENCOUNTER 2024-02-04 15:15 | Outpatient (CLI) | payer MEDICARE, BC, SELFPAY ==
--- OUTSIDE RECORDS SUMMARY | 2024-02-08 14:59 | XMS_ITS | Clinical Summary ---
Author Organization [facility] Address [place], [place] [address] Care Team Providers Care Geometry Tutor Name Role Phone Digna Quarles MD Primary Care Provide r Richard Lane MD Unavailable [phone] Nela Small [facility] Unavailable Allergies Active Allergy Reactions Criticality Noted Date Comments Adhesive Rash 11/01/2014 Doxycycline Nausea Only 07/03/2016 Niacin Rash,Palpitations,Fl ushi ng 11/01/2013 Penicillins Hives High Pt states she had hives many years ago Medications Medication Sig Dispensed Refills Start Date End Date Status Calquence, acalabrutinib mal, 100 mg tablet Take 100 mg by mouth one time. 08/31/2022 Active levothyroxine (SYNTHROID) 100 mcg tabletIndications:Hypot hyroidism, unspecified type TAKE 1 TABLET (100 MCG) BY MOUTH BEFORE BREAKFAST. 90 Tablet 1 09/28/2023 Active Active Problems Problem Noted Date Diagnosed Date CLL (chronic lymphocytic leukemia) 01/20/2022 Acute eczematoid otitis externa of left ear 01/18 Sepsis 04/10/2017 Fungal pneumonia 12/08/2016 Postprocedural pneumothorax 09/23/2016 MGUS (monoclonal gammopathy of unknown significa nce) 06/04/2016 Incomplete bladder emptying 11/20/2015 Recurrent UTI 11/20/2015 Acute pyelonephritis 10/13/2014 Presbyopia OU 05/02/2013 Bacteremia 11/18/2012 ACP (advance care planning) 08/14/2012 Atrophic kidney 08/29/2011 Overview (08/29/2011): Right kidney smaller than left on ultrasound 2007. Nephrolithiasis 08/29/2011 Overview (08/30/2011): Right sided kidney stone in proximal ureter 08/28/11 with hydronephrosis. Tobacco abuse 03/25/2010 Overview (08/30/2011): Around 1/2 ppd. Autoimmune hepatitis 04/26/2009 Overview (08/30/2011): On imuran Unspecified hypothyroidism Overview (08/30/2011): On synthroid Other and unspecified hyperlipidemia Lung [...] 09/15/2007 08/29/2011 Excessive or frequent menstruation 01/16/2011 Overview (08/03/2006): s/p hysterectomy Encounters Date Type Department Care Team Description 11/12/2023 8:20 AM CDT Phone Office Visit [facility] [address] [place] [address] Elaine Jasmine NP Sinus Problem (Patient presents for telephone visit to discuss sinus problem); Telehealth (Phone visit, no vitals) 11/11/2023 Travel 11/11/2023 Nurse Triage [facility] [address] [place] [address] Digna Quarles MD Cough from Last 3 Months Immunizations Name Administration [...] Smoking Tobacco: Every Day Cigarettes 0.5 30 Started: 1977 Passive Smoke Exposure: Never Smokeless Tobacco: Never Tobacco Cessation:Ready to Q [...] Comments Blood Pressure 121/78 06/03/2023 12:57 PM NURSE SANE Pulse 85 06/03/2023 12:57 PM NURSE SANE Temperature 36.6 ??C (97.9 ??F) 11/30/2022 1:40 PM CD T Respiratory Rate 20 12/27/2018 9:22 AM CDT Oxygen Saturation 98% 06/03/2023 12: 57 PM NURSE SANE Inhaled Oxygen Concentration - - Weight 97.4 kg (214 lb 12.8 oz) 024 12:57 PM NURSE SANE Height 170.2 cm (5' 7) 08/04/2022 10:3 [...] - PPSV23 or PCV20) 12/16/2022 12/16/2017, 12/10/2016 BMI (ht and wt on same day) for age 18+ 08/05/2023 08/04/2022, 07/16/2021, 11/19/2020, Additional history exists COVID-19 vaccine series ( season) 2023 03/06/2022, 02/26/2021, 07/29/2020, Additional history exists Influenza for age 65+ 12/19/2023 01/21/2023 , 01/21/2023, 01/23/2022, Additional history exists Fecal testing sDNA-FIT (Entriken guard) for age 45-75 10/29/2025 10/29/2022 Lipids for age 45-75 10/09/2027 10/08/2022, 03/18/2010, 04/24/2009, Additional history exists Tetanus booster 12/31/2032 12/31/2022, 12/20, 06/18/1997 Hepatitis C screening for ag e 18-79 Completed 09/05/2007 Zoster (shingles) series for age 50+ Completed 03/13/2020, 01/03/2020 Tdap Completed 12/31/2022 Medical Devices Implanted Type Area Payroll And Benefits Assistant Device Identifier Shelf Expiration Date Model / Serial / Lot Stent Contour [id number] - [id number] Implanted:Qty: 1 on 08/30/2011 at [facility] Left: Ureter [facility] [id number]# / / [id number] Stent Prcflx [id number] Hydpls - [id number] Implanted:Qty: 1 on 08/12/2012 by Jerry Roach MD at [facility] Left: Ureter [facility] 04/18/2012 [id number]# / / [id number] Stent Prcflx [id number] Hydpls - [id number] Implanted:Qty: 1 on 11/17/2012 by Gavin Banks MD at [facility] Right: Ureter 08/17/2015 [id number]# / / [id number] Stent Urtrl Prcflx [id number] - [id number] Implanted:Qty: 1 on 11/30/2012 by Fran Meehan MD at [facility] Ureter [facility] [id number]# / / [id number] Stent Contour [id number] - [id number] Implanted:Qty: 1 on 10/14/2014 by Piotr Jacob MBBS at [facility] Left: Ureter [facility] [id number]# / / [id number] Stent Uret [id number] Contour - [id number] Implanted:Qty: 1 on 03/17/2017 by Campos Evans MD at [facility] Left: Ureter [facility] 180-222# / / [id number] Stent Uret [id number] Silhouette - [id number] Implanted:Qty: 1 on 04/09/2017 by Tobin Chacko MD at [facility] Left: Ureter [employer]ker 09/21/2019 [id number] / / [id number] Stent Uret [id number] Silhouette - [id number] Implanted:Qty: 1 on 04/09/2017 by Tobin Chacko MD at [facility] Right: Ureter [employer] 09/21/2019 [id number] / / [id number] Procedures Procedure Name Priority Date/Time Associated Diagnosis Comments SDNA-FIT EXTERNAL (COLOGUARD) Routine 10/29/2022 9:00 AM CDT Screening for colon cancer LIPID PANEL W REFLEX MEASURED LDL Routine 10/08/2022 1:43 PM CDT Lipid screening XR MAMMO BEVERLEY BILAT SCREEN Routine 09/05/2020 10:43 AM CDT Visit for screening mammogram OCCULT BLOOD IFOBT STOOL Routine 03/08/2019 8:00 AM NURSE SANE Screening for colon cancer ANTI HCV Routine 09/05/2007 2:11 PM CDT Elevated Levels Of Transaminase Or Ldh Malaise And Fatigue Joint Pain from Last 3 Months or Most Recently Relevant to Health Maintenance Results * SDNA-FIT EXTERNAL (COLOGUARD) (10/29/2022 9:00 AM CDT) [facility] COLON CA DNA+OCC BLD SCRN STL-IMP Negative Negative 11/04/2022 10:37 AM CDT [employer] (CLIA #:[id number]) Comment: NEGATIVE TEST RESULT. A negative Cologuard [...] with both Cologuard and colonoscopy. (Luis Manuel Chance al, N Engl J Med 2014;370(14):1286- 1297) The normal value (reference range) for this assay is negative. COLOGUARD RE-SCREENING RECOMMENDATION: Periodic colorectal cancer screening is an important part of preventive healthcare for asymptomatic individuals at average risk for colorectal cancer. ??Following a negative Cologuard result, the [place] [employer] and U.S. Multi-Society Task Force screening guidelines recommend a Cologuard re-screening interval of 3 years. References: [employer] [place] [employer] Guideline for Colorectal Cancer Screening: https://www.cancer.org/cancer/pnyfs-kqmkgu-xmiyog/qhljjwpby-nrrsjtath-tvoaeys/ac s-rec ommendations.html.; Carlos DK, Keisha CR, Adia HarrisK, Colorectal Cancer Screening: Recommendations for Physicians and Patients from the U.S. Multi-Society Task Force on Colorectal Cancer Screening , Am J Gastroenterology 2017; 112:0639-4454. TEST DESCRIPTION: Composite algorithmic analysis of stool [...] with both Cologuard and colonoscopy. (Luis Manuel Chance al, N Engl J Med 2014;370(14):2093-0058.) Cologuard may produce a false negative or false positive result (no colorectal cancer or precancerous polyp present at colonoscopy follow up). A negative Cologuard test result does not guarantee the absence of CRC or advanced adenoma (pre-cancer). The current Cologuard screening interval is every 3 years. ([employer] [place] [employer] and U.S. Multi-Society Task Force). Cologuard performance data in a 10,000 patient pivotal study using colonoscopy as the reference method can be accessed at the following location: www.BareedEE.ExactTarget/results. Additional description of the Cologuard test process, warnings and precautions can be found at www.[employer] Semicon[employer]rd.com. Stool specimen (specimen) (Rectum) 10/29/2022 9:00 AM CDT 10/30/2022 8:35 PM CDT Digna Quarles MD URINE [employer] (CLIA #:[id number]) [address] [place] [address], * (ABNORMAL) LIPID PANEL W REFLEX MEASURED LDL (10/08/2022 1:43 PM CDT) CHOLESTEROL,TOTAL 231(H) 100 - 199 mg/dL 10/08/2022 11:25 PM CDT [facility] [employer] [facility] Comment: Cholesterol, Total Reference Ranges Desirable <200 mg/dL Borderline 200-239 mg/dL High >=240 mg/dL TRIGLYCERIDES 120 <150 mg/dL 10/08/2022 11:25 PM CDT [facility] TRAL LABORATORY HDL CHOLESTEROL 46 >40 mg/dL 11:25 PM CDT [facility] TRAL LABORATORY NON-HDL CHOLESTEROL 185(H) <145 mg/dl 10/08/2022 11:25 PM CDT [facility] TRAL LAB[facility] CHOL/HDL RATIO 5.02(H) <4.50 10/08/2022 11:25 PM CDT [facility] TRAL [facility] LDL CHOLESTEROL 161(H) <=130 mg/dL 10/08/2022 11:25 PM CDT [facility]AL [facility] VLDL CHOLESTEROL 24 <=30 mg/dL 10/08/2022 11:25 PM CDT [facility] TRAL LABORATORY PROVIDER ORDERED STATUS RANDOM 10/08/2022 11:25 PM CDT [facility] TRAL [facility] Blood BLOOD SPECIMEN / Unknown Venipuncture / Unknown 10/08/2022 1:43 PM CDT 10/08/2022 1:44 PM CDT Digna Quarles MD [facility] [address] [place] [address], * XR MAMMO BEVERLEY BILAT SCREEN (09/05/2020 [...] PM CDT XR MAMMO BEVERLEY BILAT SCREEN [[id number]] CLINICAL HISTORY: ??This is an asymptomatic 65 [...] OCCULT BLOOD IFOBT STOOL (03/08/2019 8:00 AM NURSE SANE) STOOL BLOOD ,IFOBT Negative Negative 03/08/2019 11:06 AM NURSE SANE [facility] [[email or web address]] Stool STOOL SPECIMEN / Unknown Non-Blood / Unknown 03/08/2019 8:00 AM NURSE SANE 03/08/2019 10:42 [address] NURSE SANE Rodney Miller MD LABORATORY [facility] [[email or web address]] [address] [place] [address], * ANTI HCV (09/05/2007 2:11 PM CDT) ANTI HCV Non-reacti ve [facility] Blood specimen (specimen) BLOOD SPECIMEN / Unknown 09/05/2007 2:11 PM CDT 09/05/2007 2:09 PM CDT Kevin Ngo MD SEND OUTS [facility] INTERNAL ZIP [id number] [place] [id number] from Last 3 Months or Most Recently [...] 8:16 PM 10/16/2014 1:56 PM Care Teams Geometry Tutor Relationship Specialty Start Date End Date Digna Quarles MD [address] [place] [address] PCP - General 08/25/[address] MD [address] [place] [address] Rheumatology Rheumatology 07/10/13 Nela Small, CARLOS [address] [place] [address] Oncology Clinical Nurse Specialist 08/05/16
== END 2024-02-04 15:16 | disposition home or self-care (01) ==
LOC: NFLDREF 02-08 14:56
PROVIDERS: PCP Family Medicine; Referring Provider Family Medicine; Visit Provider Nurse Practitioner Family
DX: R39.9 Unspecified symptoms and signs involving the genitourinary system (principal); N30.90 Cystitis, unspecified without hematuria
CPT/HCPCS: 87086; 87186

== ENCOUNTER 2024-05-31 11:00 | Outpatient (RCR) | payer MEDICARE, BC, SELFPAY ==
[2024-02-21 13:41] LABS: Hematocrit 38.9 % (33.0-51.0); Hemoglobin* 12.6 gm/dL (12.0-16.0); Mean Corpuscular HGB Conc 32 gm/dL (32-36); Mean Corpuscular Hemoglobin 30 pg (26-34); Mean Corpuscular Volume 93 fL (80-100); Platelet Count* 216 K/uL (140-440); RDW Coefficient of Variation % 14.8 % (11.5-15.5); Red Blood Count 4.17 m/uL (4.00-5.20); White Blood Count* 16.27 K/uL (4.50-11.00)
[2024-02-21 14:04] LABS: Chloride* 105 mmol/L (96-114); Potassium* 3.9 mmol/L (3.6-5.1); Sodium* 135 mmol/L (135-149)
[2024-02-21 14:06] LABS: Anion Gap 9 mEq/L (7-15); Aspartate Amino Transferase* 18 U/L (12-35); Bilirubin Total* 0.2 mg/dL (0.1-1.5); Carbon Dioxide* 21 mmol/L (20-32); Estimated Glomerular Filt Rate 61 ml/min
[2024-02-21 14:07] LABS: Alkaline Phosphatase* 86 U/L (40-150); Blood Urea Nitrogen* 14 mg/dL (7-30); Calcium* 10.3 mg/dL (8.4-10.6); Glucose* 94 mg/dL (60-115); Total Protein* 7.5 g/dL (6.0-8.3)
[2024-02-21 14:23] LABS: Alanine Aminotransferase* 8 U/L (4-35)
[2024-02-21 14:40] LABS: Slide Review Reflex Req Man Differential
[2024-02-21 14:41] LABS: Total Cells Counted 100
[2024-02-21 14:42] LABS: Platelet Estimate Appears Adequate (Adequate)
[2024-02-21 14:53] LABS: Lactate Dehydrogenase* 138 U/L (120-246)
--- NOTE | 2024-02-21 15:15 | ONC.NURNOTE ---
lab results reviewed with patient over the phone as stable appt next week with provider
[2024-02-23 23:53] LABS: Albumin 3.56 g/dL (3.75-5.01); Alpha 1 Globulin 0.29 g/dL (0.19-0.46); Alpha 2 Globulin 0.69 g/dL (0.48-1.05); Immunofixation IFE Done; Immunoglobulin A 27 mg/dL (68-408); Immunoglobulin G 1821 mg/dL (768-1632); Immunoglobulin M 41 mg/dL (35-263); Kappa Qnt Free Light Chains 23.66 mg/L (3.30-19.40); Lambda Qnt Free Light Chains 6.96 mg/L (5.71-26.30); Monoclonal Protein 1.85 g/dL (<=0.00)
--- NOTE | 2024-02-29 09:47 | W.PM.EKGIN_ITS ---
EKG Interpretation EKG Data Attestation: I personally reviewed and interpreted this ECG as follows: Date of EKG Tracin02/21/24 EKG interpretation date: 02/29/24 EKG interpretation time: 09:48 Prior EKG tracings: available for review Interpretation: EKG interpretation is done from above date. Indication is chemotherapeutic monitoring. Rhythm is sinus, ventricular rate is 77, mild left axis deviation is noted. Full disease are low but similar to previous EKG. QRS is 82 milliseconds, QT is 380, QTC is 430. Assessment: Normal sinus rhythm, with low-voltage QRS, noted on previous tr acing. QT and QTC normal
[2024-05-24 13:13] LABS: Basophils Percent Auto 0.8 % (0.0-3.0); Eosinophils Percent Auto 2.8 % (0.0-7.0); Hemoglobin* 12.8 gm/dL (12.0-16.0); Immature Granulocytes Pct Auto 0.3 %; Lymphocytes Percent Auto 47.3 % (20-44); Mean Corpuscular HGB Conc 32 gm/dL (32-36); Mean Corpuscular Hemoglobin 30 pg (26-34); Mean Corpuscular Volume 94 fL (80-100); Monocytes Percent Auto 9.9 % (0.0-11.0); Neutrophils Percent Auto 38.9 % (42.0-72.0); Platelet Count* 178 K/uL (140-440); RDW Coefficient of Variation % 14.8 % (11.5-15.5); Red Blood Count 4.28 m/uL (4.00-5.20); White Blood Count* 11.05 K/uL (4.50-11.00)
[2024-05-24 13:16] LABS: Slide Review Reflex No
[2024-05-24 13:21] LABS: Albumin* 3.9 g/dL (3.3-5.0); Chloride* 107 mmol/L (96-114); Potassium* 4.1 mmol/L (3.6-5.1); Sodium* 137 mmol/L (135-149)
[2024-05-24 13:23] LABS: Creatinine* 0.9 mg/dL (0.5-1.5); Est. Creatinine Clearance* 50.91; Estimated Glomerular Filt Rate 69 ml/min
[2024-05-24 13:24] LABS: Alanine Aminotransferase* 7 U/L (4-35); Alkaline Phosphatase* 86 U/L (40-150); Anion Gap 9 mEq/L (7-15); Aspartate Amino Transferase* 15 U/L (12-35); Bilirubin Total* 0.3 mg/dL (0.1-1.5); Blood Urea Nitrogen* 14 mg/dL (7-30); Carbon Dioxide* 21 mmol/L (20-32); Glucose* 96 mg/dL (60-115); Lactate Dehydrogenase* 126 U/L (120-246); Total Protein* 7.5 g/dL (6.0-8.3)
[2024-05-24 13:25] LABS: Calcium* 10.3 mg/dL (8.4-10.6)
[2024-05-27 02:59] LABS: Albumin 3.61 g/dL (3.75-5.01); Alpha 1 Globulin 0.31 g/dL (0.19-0.46); Alpha 2 Globulin 0.67 g/dL (0.48-1.05); Immunofixation IFE Done; Immunoglobulin A 31 mg/dL (68-408); Immunoglobulin G 2033 mg/dL (768-1632); Immunoglobulin M 50 mg/dL (35-263); Kappa Qnt Free Light Chains 30.45 mg/L (3.30-19.40); Kappa/Lambda Light Chain Ratio 3.52 (0.26-1.65); Lambda Qnt Free Light Chains 8.65 mg/L (5.71-26.30); Monoclonal Protein 1.94 g/dL (<=0.00); Total Protein, Serum 7.1 g/dL (6.3-8.2)
== END 2024-08-19 23:59 | disposition home or self-care (01) ==
LOC: CCIC 11:00
PROVIDERS: PCP Family Medicine; Referring Provider Family Medicine; Visit Provider Internal Medicine Hematology & Oncology
DX: C91.10 Chronic lymphocytic leukemia of B-cell type not having achieved remission (principal); D47.2 Monoclonal gammopathy; D72.820 Lymphocytosis (symptomatic); Z87.891 Personal history of nicotine dependence
CPT/HCPCS: 36415; 80053; 82784; 83520; 83615; 84155; 84165; 85025; 86334; 93005; 93010; 99214; G0463

== ENCOUNTER 2024-12-06 13:30 | Outpatient (RCR) | payer MEDICARE, BC, SELFPAY ==
[2024-08-29 13:19] LABS: Hematocrit* 38.1 % (33.0-51.0); Hemoglobin* 12.1 gm/dL (12.0-16.0); Immature Granulocytes Pct Auto 0.2 %; Mean Corpuscular HGB Conc 32 gm/dL (32-36); Mean Corpuscular Hemoglobin 30 pg (26-34); Mean Corpuscular Volume 94 fL (80-100); RDW Coefficient of Variation % 14.4 % (11.5-15.5); Red Blood Count* 4.04 m/uL (4.00-5.20); White Blood Count* 16.11 K/uL (4.50-11.00)
[2024-08-29 13:32] LABS: Albumin* 4.0 g/dL (3.3-5.0); Chloride* 108 mmol/L (96-114)
[2024-08-29 13:33] LABS: Potassium* 4.5 mmol/L (3.6-5.1); Sodium* 138 mmol/L (135-149)
[2024-08-29 13:35] LABS: Alanine Aminotransferase* 9 U/L (4-35); Anion Gap 6 mEq/L (7-15); Aspartate Amino Transferase* 19 U/L (12-35); Bilirubin Total* 0.4 mg/dL (0.1-1.5); Blood Urea Nitrogen* 19 mg/dL (7-30); Carbon Dioxide* 24 mmol/L (20-32); Creatinine* 1.0 mg/dL (0.5-1.5); Estimated Glomerular Filt Rate 60 ml/min; Total Protein* 7.7 g/dL (6.0-8.3)
[2024-08-29 13:36] LABS: Alkaline Phosphatase* 80 U/L (40-150); Calcium* 10.7 mg/dL (8.4-10.6); Glucose* 91 mg/dL (60-115)
[2024-08-29 14:45] LABS: Immature Granulocytes Abs Auto 0.00 K/uL (0.00-0.30); Lymphocytes Absolute Auto 8.10 K/uL (0.90-2.90); Slide Review Reflex Yes
[2024-08-29 14:46] LABS: Slide Review Acceptable Review (Acceptable)
--- NOTE | 2024-08-29 15:36 | ONC.NURNOTE ---
lab called to [facility] noted Ca 10.7- she does report high calcium intake through food, milk, icecream, and protein powders MMP pending
[2024-09-01 01:03] LABS: Albumin 3.68 g/dL (3.75-5.01); Immunoglobulin A 29 mg/dL (68-408); Immunoglobulin G 1910 mg/dL (768-1632); Immunoglobulin M 38 mg/dL (35-263)
--- NOTE | 2024-09-07 11:07 | ONC.NURNOTE ---
Myeloma labs returned as stable called to patient
[2024-12-01 11:11] LABS: Hematocrit* 37.4 % (33.0-51.0); Hemoglobin* 12.2 gm/dL (12.0-16.0); Immature Granulocytes Pct Auto 0.4 %; Mean Corpuscular HGB Conc 33 gm/dL (32-36); Mean Corpuscular Hemoglobin 31 pg (26-34); Mean Corpuscular Volume 94 fL (80-100); RDW Coefficient of Variation % 15.0 % (11.5-15.5); Red Blood Count* 4.00 m/uL (4.00-5.20); White Blood Count* 13.99 K/uL (4.50-11.00)
[2024-12-01 11:17] LABS: Immature Granulocytes Abs Auto 0.10 K/uL (0.00-0.30); Lymphocytes Absolute Auto 5.70 K/uL (0.90-2.90)
[2024-12-01 11:18] LABS: Slide Review Reflex No
[2024-12-01 11:25] LABS: Albumin* 3.8 g/dL (3.3-5.0); Chloride* 107 mmol/L (96-114)
[2024-12-01 11:26] LABS: Potassium* 4.9 mmol/L (3.6-5.1); Sodium* 135 mmol/L (135-149)
[2024-12-01 11:28] LABS: Alanine Aminotransferase* 11 U/L (4-35); Anion Gap 5 mEq/L (7-15); Aspartate Amino Transferase* 23 U/L (12-35); Blood Urea Nitrogen* 15 mg/dL (7-30); Carbon Dioxide* 23 mmol/L (20-32); Creatinine* 1.0 mg/dL (0.5-1.5); Estimated Glomerular Filt Rate 60 ml/min
[2024-12-01 11:29] LABS: Alkaline Phosphatase* 82 U/L (40-150); Bilirubin Total* 0.3 mg/dL (0.1-1.5); Calcium* 10.6 mg/dL (8.4-10.6); Glucose* 116 mg/dL (60-115); Total Protein* 7.5 g/dL (6.0-8.3)
[2024-12-05 02:30] LABS: Albumin 3.33 g/dL (3.75-5.01); Immunoglobulin A 28 mg/dL (68-408); Immunoglobulin G 1769 mg/dL (768-1632); Immunoglobulin M 44 mg/dL (35-263)
== END 2025-02-25 23:59 | disposition home or self-care (01) ==
LOC: CCIC 13:30
PROVIDERS: PCP Family Medicine; Referring Provider Family Medicine; Visit Provider Internal Medicine Hematology & Oncology
DX: C91.10 Chronic lymphocytic leukemia of B-cell type not having achieved remission (principal); D47.2 Monoclonal gammopathy; Z87.891 Personal history of nicotine dependence
CPT/HCPCS: 36415; 80053; 82784; 83520; 83615; 84155; 84165; 85025; 86334; 99214; G0463